=== PATIENT | female | born 1950 | race Caucasian/White ===

== ENCOUNTER 2022-02-19 12:25 | Emergency (ER) | payer MEDICARE, SELFPAY ==
[2022-02-19] VITALS (44 sets, daily range): BP systolic 131–168; BP diastolic 58–105; PULSE 60–79; RESP 13–21; TEMP 36.8–37.1; O2SAT 95–99
--- NOTE | 2022-02-19 12:15 | RT.EKG_ITS ---
APPROVED REPORT Exam: Resting ECG Reason for Exam: chest pain Patient Location: E HR:64 bpm ECG Measurements Heart Rate 64 AXIS AR 185 P [id number] QRSd 86 QRS 39 QT 449 T 60 QTc 463 Conclusion Atrial-paced rhythm Low voltage, precordial leads...precordial leads <1.0mV atrial paced rhythm at 64, normal axis, no STEMI, nondiagnostic EKG
[2022-02-19 12:55] LABS: Abs Immature Grans 0.02 10^3/uL (0.0-0.06); Absolute Basophil Count 0.06 10^3/uL (0.0-0.2); Absolute Lymphocyte Count 1.06 10^3/uL (1.2-3.4); Absolute Monocyte Count 0.73 10^3/uL (0.1-0.8); Absolute Neutrophil Count 4.47 10^3/uL (1.2-6.7); Basophils % 0.8; Eosinophils % 19.1; HCT 37.8 % (36.0-46.0); HGB 11.2 g/dL (11.2-15.7); Immature Grans % 0.3; Lymphocytes % 13.5; MCHC 29.6 % (32.0-36.0); MCV 81 fL (80-95); MPV 10.2 fL (8.0-11.0); Monocytes % 9.3; Platelet Count 260 10^3/uL (130-400); RBC 4.66 10^6/uL (3.93-5.22); RDW 15.6 % (11.7-14.6); RDW-SD 46.2 fL; WBC 7.84 10^3/uL (4.4-10.8)
--- NOTE | 2022-02-19 13:12 | DI.RAD_ITS ---
Exam(s) XR PORTABLE CHEST AP EXAM: XR PORTABLE CHEST AP CLINICAL HISTORY: cough TECHNIQUE: 2D digital imaging was performed of the chest. Two images were obtained. AP views were obtained. COMPARISON: No exams were available for comparison FINDINGS: MEDIASTINUM: Normal. HEART: Normal. PULMONARY VASCULATURE: Normal. LUNGS: Clear. PLEURAL SPACE: No pleural effusion or pneumothorax. BONE:Within normal limits for the patient's age. OTHER FINDINGS:Transvenous cardiac pacing wires are in good position. IMPRESSION: No acute pulmonary findings. DATA REPOSITORY: RADIATION DOSE DELIVERED:
[2022-02-19 13:17] LABS: ALT 47 U/L (14-59); AST 39 U/L (15-37); Albumin 2.7 g/dL (3.4-5.0); Alkaline Phosphatase 162 U/L (46-116); Anion Gap 7.3 mmol/L (3-11); BUN 15 mg/dL (7-18); Bilirubin, Total 0.4 mg/dL (0.2-1.0); CO2 27.7 mmol/L (21.0-32.0); Calcium 8.7 mg/dL (8.5-10.1); Chloride 103 mmol/L (98-107); Estimated GFR 54.97 (mL/min/1.73m2); Glucose 149 mg/dL (74-106); Lipase 78 U/L (73-393); NT-proBNP 159 pg/mL (<300); Sodium 138 mmol/L (136-145); Total Protein 7.7 g/dL (6.4-8.2); Troponin I < 50 ng/L (<or=60)
[2022-02-19] MEDS: Albuterol/Ipratropium 3 ML UPD VIAL UPD (13:29)
--- NOTE | 2022-02-19 13:30 | DI.CT_ITS ---
Exam(s) CT ABDOMEN PELVIS WO EXAM: CT ABDOMEN PELVIS WO CLINICAL HISTORY: LUQ pain. TECHNIQUE: Imaging Protocol: Axial computed tomography images with coronal and sagittal reformatted images were created and reviewed. COMPARISON: No exams were available for comparison FINDINGS: ABDOMEN: Lung Bases: Normal where visualized. Liver: Normal density. No measurable mass. Gallbladder and biliary tract: No radiodense calculus or biliary ductal dilation. Pancreas: Normal density, no abnormal calcifications or inflammatory process. Spleen: Normal. Kidneys: Normal size, contour and axis.Nonobstructing stones are seen in the midpole of the right kid anil. There is a 1.3 cm stone in the dependent portion of the left renal pelvis. It does not appear to be causing obstruction. No masses seen. Adrenal glands: No mass is seen. Lymph nodes: Within normal limits. Abdominal Aorta: Abdominal portion non-dilated. Atherosclerosis. PELVIS: Bladder:Symmetric distention, no gross wall thickening. Bowel: No obstruction or bowel wall thickening. No evidence of acute appendicitis. Peritoneal cavity: No ascites, collection or mesenteric inflammatory response. No free air. Reproductive organs: Status post hysterectomy. Bones: Within normal limits. Soft Tissues: Within normal limits. IMPRESSION: 1. 1.3 cm stone in the left renal pelvis. At this time is not obstructive and no hydronephrosis is p resent. 2. Right nephrolithiasis. 3. Results of this exam have been verbally communicated with provider. RADIATION DOSE DELIVERED: 1,565.71mGy.cm Total DLP DATA REPOSITORY: All CT scans at this facility are submitted to the National Radiology Data Registry (NRDR) Dose Index Registry (DIR) with the [employer] ([employer]). RADIATION OPTIMIZATION: All CT scans at this facility use at least one of these dose optimization te chniques: automated exposure control; mA and/or kV adjustment per patient size (includes targeted exa ms where dose is matched to clinical indication); or iterative reconstruction.
[2022-02-19 13:38] LABS: COVID-19 PCR Negative (Negative); Influenza A PCR Negative (Negative); Influenza B PCR Negative (Negative); RSV PCR Negative (Negative)
[2022-02-19] MEDS: Breeza Beverage 473 ML BTL PO (13:48)
[2022-02-19] MEDS: Barium Sulfate 2% W/V-Berry Smoothie 450 ML BTL PO (13:53)
[2022-02-19 14:09] LABS: Bilirubin Negative (Negative); Blood Negative (Negative); Clarity Clear (Clear); Glucose Negative (Negative); Ketones Negative (Negative); Leukocyte Esterase Negative (Negative); Nitrite Negative (Negative); Specific Gravity >= 1.030 (1.005-1.025); Urobilinogen 0.2 EU/dL (Up TO 0.2)
[2022-02-19 14:20] LABS: Bacteria Negative HPF (Negative); C & S Indicated? No; Casts 0-2 Hyaline LPF (Negative); Crystals Negative HPF (Negative); Epithelial Cells Few HPF (Negative); Mucus Negative (Negative); RBC 0-2 HPF (0-2); WBC Negative HPF (0-5)
--- NOTE | 2022-02-19 14:28 | ED.GENADUL_ITS ---
Discharge Plan Disposition Patient Disposition: HOME Condition: Stable Discharge Details Clinical Impression: Kidney stone Primary Care Provider: Mathew Altman ED Provider: Stacie Shelton Home Meds and New Rx's Prescriptions: New tamsulosin [Flomax] 0.4 mg capsule 0.4 mg PO DAILY Qty: 7 0RF Continued atorvastatin 40 mg tablet 40 mg PO QHS dofetilide [Tikosyn] 250 mcg capsule 250 mcg PO Q12H famotidine 10 mg tablet 10 mg PO DAILY (DME) blood-glucose meter [FreeStyle Flash System] Kit See Rx Instructions .Route Rx Instructions: As directed (DME) blood-glucose meter [FreeStyle Lite Meter] Kit See Rx Instructions .Route Rx Instructions: As directed (DME) FreeStyle Lite Strips Strip See Rx Instructions .Route Rx Instructions: As directed hydralazine 25 mg tablet 25 mg PO TID Rx Instructions: for 2nd dose take 2 tablets as instructed lactobacillis PO DAILY (DME) lancets [Micro Thin Lancets] 33 gauge misc See Rx Instructions .Route Rx Instructions: As directed lidocaine jelly 2 % topical metformin 1,000 mg tablet 1,000 mg PO BID phytonadione (vitamin K1) 100 mcg tablet 500 mcg PO DAILY (DME) Oxygen Tank See Rx Instructions .Route Rx Instructions: 2l/min via nasal cannula silver sulfadiazine [Silvadene] 1 % cream 1 applic topical DAILY PRN Rx Instructions: apply a 1.5 mm thickness albuterol sulfate [Ventolin HFA] 90 mcg/actuation HFA aerosol inhaler 2 puff inhalation Q6H PRN potassium chloride 10 mEq capsule, extended release 10 meq PO TID Qty: 90 3RF prednisone 5 mg tablet 15 mg PO DAILY Qty: 90 6RF Entresto 97-103 mg tablet 1 tab PO BID Qty: 180 3RF No Action potassium chloride 20 mEq tablet extended release 20 meq PO DAILY Label Comments: pt states she takes 20meq 3x/week. carvedilol 25 mg tablet 25 mg PO BID Qty: 180 3RF Rx Instructions: must administer with a meal/food promethazine 12.5 mg tablet 12.5 mg PO Q6H PRN (Reason: nausea and vomiting) Qty: 90 3RF Discharge Instructions Instructions: Kidney Stones (ED) Additional Instructions: Please return immediately to the emergency department if you develop any new or worsening symptoms, if your condition does not improve as expected, or if you become otherwise concerned. It is extremely important that you call soon as possible to make an appointment to be seen in follow-up for this visit by your primary care doctor and urology. If you do not hear from urology tomorrow by noon, please call the number provided. Referrals: Juan Dominguez MD [ [facility] STAFF PHYSICIAN] - Mathew Altman DO [Primary Care Provider] - Discharge Data Discharge Date/Time-TO BE ENTERED AT DEPARTURE: 02/19/22 17:43 Medical Decision Making Candice Albarado is a 71 y/o woman with h/o diabetes, sleep apnea, COPD, chronic venous insufficency, sick sinus syndrome, HTN presenting to the emergency department with chest pain. Pt reports that for the past 2 days she has had pain in her chest (however when asked to point to area of pain Pt motions to her LUQ and not her chest). Pt reports that pain waxes and wanes, no known modifiers. Denies having similar pain in the past. Pt reports on ROS that she also has occasional pain in the area of pacer pocket, has been occurring since chronically since placement, not occurring now. She denies any other pain, fever, cough, vomiting, numbness, weakness. Reports some mild exertional SOB, occurring for a few weeks or longer. Has been eating and drinking as usual. On exam Pt is very well and [id number]. No TTP, edema, erythema over pacer pocket. Moderate focal LUQ TTP, no other abdominal TTP, no peritoneal signs. No TTP of the left anterior or lateral chest wall/ribs. Concern for pancreatitis, colitis, PNA, other. Doubt acute coronary process. Exam/hx at this time not c/w pulmonary embolism, acute aortic pathology, sepsis, appendicitis. Plan for IV placement, screening labs, CXR, CT abd/pelvis. There is currently a national shortage of IV contrast dye. Plan for CT abd/pelv with PO contrast only per [facility] radiology department protocols. 1.3 cm stone in the left renal pelvis on CT scan. On further discussion with patient, she reports that she has been having this pain intermittently over the last few months. Suspect left upper quadrant pain secondary to intermittently obstructing stone. I discussed patient with Dr. Dominguez of urology, who agreed stone likely to be cause of pain, will see patient in outpatient follow-up, requested patient be given Flomax to facilitate cystoscopy.Patient states that she feels the pain is manageable at home, declines pain medication. I had a discussion with Patient regarding return to emergency department precautions, home care, and importance of outpatient follow-up. Pt verbalizes understanding of the plan and is amenable. Patient discharged to home with clear plan for outpatient follow-up. All questions were answered. Disposition decision was made weighing the risks and benefits of hospitalization versus outpatient treatment, the risk for further decompensation, and the patient's wishes. Medical Records Medical records reviewed: Yes I reviewed the patient's medical records. Imaging Data Radiologic Study: Attestation: I personally reviewed and interpreted this imaging study as follows: Radiologist's impression: EXAM:? CT ABDOMEN ? PELVIS WO CLINICAL HISTORY: ? LUQ pain.? TECHNIQUE:? Imaging Protocol: Axial computed tomography images with coronal and sagittal reformatted images were created and reviewed. COMPARISON:? No exams were available for comparison FINDINGS: ABDOMEN: Lung Bases: Normal where visualized. Liver: Normal density. No measurable mass. Gallbladder and biliary tract: No radiodense calculus or biliary ductal dilation. Pancreas: Normal density, no abnormal calcifications or inflammatory process. Spleen: Normal. Kidneys: Normal size, contour and axis.Nonobstructing stones are seen in the midpole of the right kidney.? There is a 1.3 cm stone in the dependent portion of the left renal pelvis.? It does not appear to be causing obstruction.? No masses seen. Adrenal glands: No mass is seen. Lymph nodes: Within normal limits.? Abdominal Aorta: Abdominal portion non-dilated. Atherosclerosis. PELVIS:? Bladder:Symmetric distention, no gross wall thickening. Bowel: No obstruction or bowel wall thickening. No evidence of acute appendicitis.? Peritoneal cavity: No ascites, collection or mesenteric inflammatory response.? No free air.? Reproductive organs: Status post hysterectomy.? Bones: Within normal limits. Soft Tissues: Within normal limits. IMPRESSION: 1. 1.3 cm stone in the left renal pelvis.? At this time is not obstructive and no hydronephrosis is present. 2. Right nephrolithiasis. EXAM:? XR PORTABLE CHEST AP CLINICAL HISTORY:? cough TECHNIQUE:? 2D digital imaging was performed of the chest.? Two images were obtained.? AP views were obtained. COMPARISON:? No exams were available for comparison FINDINGS: MEDIASTINUM: Normal.? HEART: Normal. PULMONARY VASCULATURE: Normal. LUNGS: Clear. ? PLEURAL SPACE: No pleural effusion or pneumothorax. BONE:Within normal limits for the patient's age.? OTHER FINDINGS:Transvenous cardiac pacing wires are in good position. ? IMPRESSION: No acute pulmonary findings. Lab Data Lab results reviewed: Yes I reviewed the patient's lab results. Labs: Laboratory Tests Range/Units 02/19/22 02/19/22 02/19/22 12:40 12:40 12:40 WBC (4.4-10.8) 10^3/uL 7.84 RBC (3.93-5.22) 10^6/uL 4.66 Hgb (11.2-15.7) g/dL 11.2 Hct (36.0-46.0) % 37.8 MCV (80-95) fL 81 MCH (27.0-33.0) pg 24.0 L MCHC (32.0-36.0) % 29.6 L RDW (11.7-14.6) % 15.6 H Plt Count (130-400) 10^3/uL 260 MPV (8.0-11.0) fL 10.2 Immature Gran % 0.3 Neutrophils % 57.0 Lymphocytes % 13.5 Monocytes % 9.3 Eosinophils % 19.1 Basophils % 0.8 Nucleated RBC % (0.0-0.3) % 0.0 Absolute Neutrophils (1.2-6.7) 10^3/uL 4.47 Absolute Lymphocytes (1.2-3.4) 10^3/uL 1.06 L Absolute Monocytes (0.1-0.8) 10^3/uL 0.73 Absolute Eosinophils (0.0-0.7) 10^3/uL 1.50 H Absolute Basophils (0.0-0.2) 10^3/uL 0.06 Sodium (136-145) mmol/L 138 Potassium (3.5-5.1) mmol/L 4.0 Chloride (98-107) mmol/L 103 Carbon Dioxide (21.0-32.0) mmol/L 27.7 Anion Gap (3-11) mmol/L 7.3 BUN (7-18) mg/dL 15 Creatinine (0.55-1.02) mg/dL 1.0 Estimated GFR/1.73 m2 (mL/min/1.73m2) 54.97 Glucose (74-106) mg/dL 149 H Calcium (8.5-10.1) mg/dL 8.7 Total Bilirubin (0.2-1.0) mg/dL 0.4 AST (15-37) U/L 39 H ALT (14-59) U/L 47 Alkaline Phosphatase (46-116) U/L 162 H Troponin I (<or=60) ng/L < 50 NT-Pro-B Natriuret Pep (<300) pg/mL 159 Cancelled Total Protein (6.4-8.2) g/dL 7.7 Albumin (3.4-5.0) g/dL 2.7 L Lipase (73-393) U/L 78 Urine Color (Yellow) Urine Clarity (Clear) Urine pH (5-8) Ur Specific [place] (1.005-1.025) Urine Protein (Negative) mg/dL Urine Ketones (Negative) mg/dL Urine Blood (Negative) Urine Nitrite (Negative) Urine Bilirubin (Negative) Urine Urobilinogen (Up TO 0.2) EU/dL Ur Leukocyte Esterase (Negative) Urine RBC (0-2) HPF Urine WBC (0-5) HPF Ur Epithelial Cells (Negative) HPF Urine Crystals (Negative) HPF Urine Bacteria (Negative) HPF Urine Casts (Negative) LPF Urine Mucus (Negative) Ur Culture Indicated? Urine Glucose (Negative) mg/dL COVID-19 Source SARS-CoV-2 (PCR) (Negative) Influenza Type A (PCR) (Negative) Influenza Type B (PCR) (Negative) RSV (PCR) (Negative) Range/Units 02/19/22 02/19/22 02/19/22 12:47 13:55 16:38 WBC (4.4-10.8) 10^3/uL RBC (3.93-5.22) 10^6/uL Hgb (11.2-15.7) g/dL Hct (36.0-46.0) % MCV (80-95) fL MCH (27.0-33.0) pg MCHC (32.0-36.0) % RDW (11.7-14.6) % Plt Count (130-400) 10^3/uL MPV (8.0-11.0) fL Immature Gran % Neutrophils % Lymphocytes % Monocytes % Eosinophils % Basophils % Nucleated RBC % (0.0-0.3) % Absolute Neutrophils (1.2-6.7) 10^3/uL Absolute Lymphocytes (1.2-3.4) 10^3/uL Absolute Monocytes (0.1-0.8) 10^3/uL Absolute Eosinophils (0.0-0.7) 10^3/uL Absolute Basophils (0.0-0.2) 10^3/uL Sodium (136-145) mmol/L Potassium (3.5-5.1) mmol/L Chloride (98-107) mmol/L Carbon Dioxide (21.0-32.0) mmol/L Anion Gap (3-11) mmol/L BUN (7-18) mg/dL Creatinine (0.55-1.02) mg/dL Estimated GFR/1.73 m2 (mL/min/1.73m2) Glucose (74-106) mg/dL Calcium (8.5-10.1) mg/dL Total Bilirubin (0.2-1.0) mg/dL AST (15-37) U/L ALT (14-59) U/L Alkaline Phosphatase (46-116) U/L Troponin I (<or=60) ng/L < 50 NT-Pro-B Natriuret Pep (<300) pg/mL Total Protein (6.4-8.2) g/dL Albumin (3.4-5.0) g/dL Lipase (73-393) U/L Urine Color (Yellow) Yellow Urine Clarity (Clear) Clear Urine pH (5-8) 6.0 Ur Specific [place] (1.005-1.025) >= 1.030 H Urine Protein (Negative) mg/dL 30 H Urine Ketones (Negative) mg/dL Negative Urine Blood (Negative) Negative Urine Nitrite (Negative) Negative Urine Bilirubin (Negative) Negative Urine Urobilinogen (Up TO 0.2) EU/dL 0.2 Ur Leukocyte Esterase (Negative) Negative Urine RBC (0-2) HPF 0-2 Urine WBC (0-5) HPF Negative Ur Epithelial Cells (Negative) HPF Few Urine Crystals (Negative) HPF Negative Urine Bacteria (Negative) HPF Negative Urine Casts (Negative) LPF 0-2 Hyaline Urine Mucus (Negative) Negative Ur Culture Indicated? No Urine Glucose (Negative) mg/dL Negative COVID-19 Source Not Applicable SARS-CoV-2 (PCR) (Negative) Negative Influenza Type A (PCR) (Negative) Negative Influenza Type B (PCR) (Negative) Negative RSV (PCR) (Negative) Negative ECG Data Attestation: I personally reviewed and interpreted this ECG (s) as follows: Interpretation: EKG shows atrial paced rhythm at 64, normal axis, no STEMI, nondiagnostic EKG HPI General Date/Time Provider Initiated Documentation: 02/19/22 12:38 . Limitations to Documentation: no limitations . Information obtained by: patient, RN notes reviewed and old records reviewed . HPI Narrative: Candice Albarado is a 71 y/o woman with h/o diabetes, sleep apnea, COPD, chronic venous insufficency, sick sinus syndrome, HTN presenting to the emergency department with abdominal pain. Pt reports that for the past 2 days she has had pain in her LUQ. Pt reports that pain waxes and wanes, no known modifiers. Denies having similar pain in the past. Pt reports on ROS that she also has occasional pain in the area of pacer pocket, has been occurring since chronically since placement, not occurring now. She denies any other pain, fever, cough, SOB, vomiting, numbness, weakness. Has been eating and drinking as usual. Related Data Home Medications Medication Instructions Recorded Confirmed Oxygen 02/15/22 03/05/22 albuterol sulfate 90 mcg/actuation 2 puff inhalation Q6H PRN 02/15/22 03/05/22 aerosol inhaler (Ventolin HFA) atorvastatin 40 mg tablet 40 mg PO QHS 02/15/22 03/05/22 blood sugar diagnostic (FreeStyle 02/15/22 03/05/22 Lite Strips) blood-glucose meter (FreeStyle 02/15/22 03/05/22 Flash System kit) blood-glucose meter (FreeStyle 02/15/22 03/05/22 Lite Meter kit) dofetilide 250 mcg capsule 250 mcg PO Q12H 02/15/22 03/05/22 (Tikosyn) famotidine 10 mg tablet 10 mg PO DAILY 02/15/22 03/05/22 hydralazine 25 mg tablet 25 mg PO TID 02/15/22 03/05/22 lactobacillis PO DAILY 02/15/22 lancets 33 gauge (Micro Thin 02/15/22 03/05/22 Lancets) lidocaine jelly 2 % topical 02/15/22 metformin 1,000 mg tablet 1,000 mg PO BID 02/15/22 03/05/22 phytonadione (vitamin K1) 100 mcg 500 mcg PO DAILY 02/15/22 03/05/22 tablet silver sulfadiazine 1 % topical 1 applic topical DAILY PRN 02/15/22 03/05/22 cream (Silvadene) potassium chloride 10 mEq 10 meq PO TID #90 caps 02/16/22 03/05/22 capsule,extended release prednisone 5 mg tablet 15 mg PO DAILY #90 tabs 02/16/22 03/05/22 sacubitril 97 mg-valsartan 103 mg 1 tab PO BID #180 tabs 02/16/22 03/05/22 tablet (Entresto) tamsulosin 0.4 mg capsule (Flomax) 0.4 mg PO DAILY #7 caps 02/19/22 03/05/22 carvedilol 25 mg tablet 25 mg PO BID #180 tabs 02/23/22 03/05/22 potassium chloride 20 mEq 20 meq PO DAILY 02/23/22 03/05/22 tablet,extended release promethazine 12.5 mg tablet 12.5 mg PO Q6H PRN nausea and 02/23/22 03/05/22 vomiting #90 tabs Previous Rx's Medication Instructions Recorded potassium chloride 10 mEq 10 meq PO TID #90 caps 02/16/22 capsule,extended release prednisone 5 mg tablet 15 mg PO DAILY #90 tabs 02/16/22 sacubitril 97 mg-valsartan 103 mg 1 tab PO BID #180 tabs 02/16/22 tablet (Entresto) tamsulosin 0.4 mg capsule (Flomax) 0.4 mg PO DAILY #7 caps 02/19/22 carvedilol 25 mg tablet 25 mg PO BID #180 tabs 02/23/22 promethazine 12.5 mg tablet 12.5 mg PO Q6H PRN nausea and 02/23/22 vomiting #90 tabs Allergies Allergy/AdvReac Type Severity Reaction Status Date / Time iodine Allergy Severe Anaphylaxis Verified 02/23/22 14:05 Penicillins Allergy Severe Anaphylaxis Verified 02/23/22 14:05 Cephalosporins Allergy dermatitis Verified 02/23/22 14:05 fluticasone Allergy unknown Verified 02/23/22 14:05 levofloxacin [From Levaquin] Allergy unknown Verified 02/23/22 14:05 codeine AdvReac Intermediate Nausea/vomi Verified 02/23/22 14:05 ting Inhaled Anesthetics (Halogen AdvReac Intermediate high fever Verified 02/23/22 14:05 Based) sotalol AdvReac Intermediate dysrhythmia Verified 02/23/22 14:05 General Stated Complaint: Chest Pain SEGUN: 2 Review of Systems Narrative: Constitutional: denies fevers Eyes: denies eye pain ENT: denies ear pain, dental pain, sore throat Cardiovascular: denies edema, reports chest pain as per HPI Respiratory: denies SOB, cough GI: denies vomiting, diarrhea, reports abdominal pain : denies flank pain MSK: denies back pain, neck pain, arthralgias, myalgias Skin: denies rash Neuro: denies headaches, numbness, weakness PFSH All Active Problems (Updated 03/05/22 @ 06:33 by Leticia Villarreal MD) Discharge planning issues (Acute) DVT prophylaxis (Acute) Chest pain at rest (Acute) LUQ pain (Acute) Nephrolithiasis (Chronic) Kidney stone (Chronic) Corticosteroid use (Acute) Low back pain (Acute) Anemia (Chronic) Recurrent obstructive pyelonephritis (Acute) Type II diabetes mellitus (Acute) DEVONTE (obstructive sleep apnea) (Chronic) COPD (chronic obstructive pulmonary disease) (Chronic) Chronic venous insufficiency (Acute) SSS (sick sinus syndrome) (Acute) 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) (HFpEF) heart failure with preserved ejection fraction (Acute) HTN (hypertension) (Chronic) Medical History (Updated 03/05/22 @ 06:33 by Leticia Villarreal MD) Allergic reaction to contrast dye Atrial fibrillation Chronic respiratory failure with hypoxia Corticosteroid dependence Gastric ulcer (1986) Obesity, morbid, BMI 40.0-49.9 Oxygen dependent Pulmonary embolism (1979) Syncope (05/26/20) Thrombosis (1984) Urinary incontinence Surgical History (Updated 03/05/22 @ 06:33 by Leticia Villarreal MD) H/O bilateral salpingo-oophorectomy H/O left breast biopsy History of breast biopsy (1974) History of foot surgery (1988) Right History of hysterectomy (~1984) [place], [place] History of lithotripsy (02/2020) History of permanent cardiac pacemaker placement (05/16/21) S/P ablation of atrial fibrillation Social History Smoking/Tobacco Use Status: Former Tobacco Use Quit Date: 10/07/93 Smoking risk assessment performed?: Yes Alcohol Intake: current Alcohol Intake frequency: holidays/special occasions only Drug use: Never Substance use type: does not use Adopted: No Caregiver/Support person: No Foster care: No Household members: spouse Housing: apartment Number of Children: 2 number of grandchildren: 4 Communication Needs: None Education Level: college Details: Associate's Degree Do you need help understanding health information?: Never current occupation: Retired Pets and animals: No Sexually active: No Do you think of yourself as: straight/heterosexual Current gender identity: female What is your relationship status?: How often do you get together with friends or relatives?: three or more times per week Panel score (0-1 are the most socially isolated patients): 2 What type of physical activity do you participate in: none Elis/Jew: Taoism Seatbelt use: always Helmet use: No 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 Do you feel safe at home: Yes Do you feel safe in your relationship?: Yes Exam Narrative Exam Narrative: Constitutional: well and [id number], pleasant, conversing normally HENT: head atraumatic/normocephalic/normal inspection, mucous membranes moist Eyes: conjunctiva normal, sclera normal, pupils 3mm b/l Neck: no stridor, normal ROM, trachea midline Chest: 90 pacer insertion incision well-healed, no overlying skin changes, no edema, no tenderness palpation over pacer pocket, otherwise normal inspection Resp: normal work of breathing, LCTAB Cardio: normal rate, normal rhythm, no murmur appreciated GI: abdomen soft, focal left upper quadrant tenderness to palpation, no rebound, no guarding, non-distended, no CVA tenderness to palpation bilaterally Back: normal inspection, no rash Skin: warm, dry, normal color, no rash Neuro: alert, not altered, grossly non-focal, normal tone Ext: no posterior calf tenderness to palpation Psych: normal mood, normal affect, normal behavior Course Vital Signs Vital signs: Vital Signs Temperature 37.1 C 02/19/22 12:15 Pulse 70 02/19/22 12:15 Respiratory Rate 16 02/19/22 12:15 Blood Pressure 151/63 H 02/19/22 12:15 Pulse Oximetry 98 02/19/22 12:15 Temperature 37.1 C 02/19/22 12:15 Temperature Source Skin 02/19/22 12:15 Pulse 60 02/19/22 14:01 Pulse 61 02/19/22 14:01 Respiratory Rate 15 02/19/22 14:01 Respiratory Effort 02/19/22 13:05 Blood Pressure 154/58 H 02/19/22 14:01 Blood Pressure Mean 84 02/19/22 14:01 Blood Pressure Position Sitting 02/19/22 12:15 Pulse Oximetry 98 02/19/22 14:01 Respiratory End-tidal CO2 33 02/19/22 14:01 Oxygen Delivery Method Nasal Cannula 02/19/22 13:29 Oxygen Flow Rate 2 02/19/22 13:29 End Tidal Co2 40 02/19/22 12:15 Pain Level 7 02/19/22 12:15 Lab/Test Results Lab/Test Results: Laboratory Tests Range/Units 02/19/22 02/19/22 02/19/22 12:40 12:40 12:40 WBC (4.4-10.8) 10^3/uL 7.84 RBC (3.93-5.22) 10^6/uL 4.66 Hgb (11.2-15.7) g/dL 11.2 Hct (36.0-46.0) % 37.8 MCV (80-95) fL 81 MCH (27.0-33.0) pg 24.0 L MCHC (32.0-36.0) % 29.6 L RDW (11.7-14.6) % 15.6 H Plt Count (130-400) 10^3/uL 260 MPV (8.0-11.0) fL 10.2 Immature Gran % 0.3 Neutrophils % 57.0 Lymphocytes % 13.5 Monocytes % 9.3 Eosinophils % 19.1 Basophils % 0.8 Nucleated RBC % (0.0-0.3) % 0.0 Absolute Neutrophils (1.2-6.7) 10^3/uL 4.47 Absolute Lymphocytes (1.2-3.4) 10^3/uL 1.06 L Absolute Monocytes (0.1-0.8) 10^3/uL 0.73 Absolute Eosinophils (0.0-0.7) 10^3/uL 1.50 H Absolute Basophils (0.0-0.2) 10^3/uL 0.06 Sodium (136-145) mmol/L 138 Potassium (3.5-5.1) mmol/L 4.0 Chloride (98-107) mmol/L 103 Carbon Dioxide (21.0-32.0) mmol/L 27.7 Anion Gap (3-11) mmol/L 7.3 BUN (7-18) mg/dL 15 Creatinine (0.55-1.02) mg/dL 1.0 Estimated GFR/1.73 m2 (mL/min/1.73m2) 54.97 Glucose (74-106) mg/dL 149 H Calcium (8.5-10.1) mg/dL 8.7 Total Bilirubin (0.2-1.0) mg/dL 0.4 AST (15-37) U/L 39 H ALT (14-59) U/L 47 Alkaline Phosphatase (46-116) U/L 162 H Troponin I (<or=60) ng/L < 50 NT-Pro-B Natriuret Pep (<300) pg/mL 159 Cancelled Total Protein (6.4-8.2) g/dL 7.7 Albumin (3.4-5.0) g/dL 2.7 L Lipase (73-393) U/L 78 Urine Color (Yellow) Urine Clarity (Clear) Urine pH (5-8) Ur Specific [place] (1.005-1.025) Urine Protein (Negative) mg/dL Urine Ketones (Negative) mg/dL Urine Blood (Negative) Urine Nitrite (Negative) Urine Bilirubin (Negative) Urine Urobilinogen (Up TO 0.2) EU/dL Ur Leukocyte Esterase (Negative) Urine RBC (0-2) HPF Urine WBC (0-5) HPF Ur Epithelial Cells (Negative) HPF Urine Crystals (Negative) HPF Urine Bacteria (Negative) HPF Urine Casts (Negative) LPF Urine Mucus (Negative) Ur Culture Indicated? Urine Glucose (Negative) mg/dL COVID-19 Source SARS-CoV-2 (PCR) (Negative) Influenza Type A (PCR) (Negative) Influenza Type B (PCR) (Negative) RSV (PCR) (Negative) Range/Units 02/19/22 02/19/22 12:47 13:55 WBC (4.4-10.8) 10^3/uL RBC (3.93-5.22) 10^6/uL Hgb (11.2-15.7) g/dL Hct (36.0-46.0) % MCV (80-95) fL MCH (27.0-33.0) pg MCHC (32.0-36.0) % RDW (11.7-14.6) % Plt Count (130-400) 10^3/uL MPV (8.0-11.0) fL Immature Gran % Neutrophils % Lymphocytes % Monocytes % Eosinophils % Basophils % Nucleated RBC % (0.0-0.3) % Absolute Neutrophils (1.2-6.7) 10^3/uL Absolute Lymphocytes (1.2-3.4) 10^3/uL Absolute Monocytes (0.1-0.8) 10^3/uL Absolute Eosinophils (0.0-0.7) 10^3/uL Absolute Basophils (0.0-0.2) 10^3/uL Sodium (136-145) mmol/L Potassium (3.5-5.1) mmol/L Chloride (98-107) mmol/L Carbon Dioxide (21.0-32.0) mmol/L Anion Gap (3-11) mmol/L BUN (7-18) mg/dL Creatinine (0.55-1.02) mg/dL Estimated GFR/1.73 m2 (mL/min/1.73m2) Glucose (74-106) mg/dL Calcium (8.5-10.1) mg/dL Total Bilirubin (0.2-1.0) mg/dL AST (15-37) U/L ALT (14-59) U/L Alkaline Phosphatase (46-116) U/L Troponin I (<or=60) ng/L NT-Pro-B Natriuret Pep (<300) pg/mL Total Protein (6.4-8.2) g/dL Albumin (3.4-5.0) g/dL Lipase (73-393) U/L Urine Color (Yellow) Yellow Urine Clarity (Clear) Clear Urine pH (5-8) 6.0 Ur Specific [place] (1.005-1.025) >= 1.030 H Urine Protein (Negative) mg/dL 30 H Urine Ketones (Negative) mg/dL Negative Urine Blood (Negative) Negative Urine Nitrite (Negative) Negative Urine Bilirubin (Negative) Negative Urine Urobilinogen (Up TO 0.2) EU/dL 0.2 Ur Leukocyte Esterase (Negative) Negative Urine RBC (0-2) HPF 0-2 Urine WBC (0-5) HPF Negative Ur Epithelial Cells (Negative) HPF Few Urine Crystals (Negative) HPF Negative Urine Bacteria (Negative) HPF Negative Urine Casts (Negative) LPF 0-2 Hyaline Urine Mucus (Negative) Negative Ur Culture Indicated? No Urine Glucose (Negative) mg/dL Negative COVID-19 Source Not Applicable SARS-CoV-2 (PCR) (Negative) Negative Influenza Type A (PCR) (Negative) Negative Influenza Type B (PCR) (Negative) Negative RSV (PCR) (Negative) Negative
[2022-02-19] MEDS: Normal Saline 500 ML IV (16:21)
[2022-02-19 17:03] LABS: Troponin I < 50 ng/L (<or=60)
== END 2022-02-19 17:43 | disposition home or self-care (01) ==
PROVIDERS: Emergency Provider Student in an Organized Health Care Education/Training Program; PCP Family Medicine
DX: N20.0 Calculus of kidney (principal); R05.1 Acute cough; R07.9 Chest pain, unspecified; R10.12 Left upper quadrant pain
CPT/HCPCS: 36415; 80053; 83690; 87637; 93005; 94640; 99284; 99285; 71045; 74176; 81003; 81015; 83880; 84484; 85025; 93010; J7620

== ENCOUNTER 2022-03-05 01:23 | Observation (INO) | payer MEDICARE, SELFPAY ==
[2022-03-05] VITALS (31 sets, daily range): BP systolic 123–166; BP diastolic 63–103; PULSE 56–148; RESP 14–23; TEMP 36.1–36.9; O2SAT 90–98
--- NOTE | 2022-03-05 01:15 | RT.EKG_ITS ---
APPROVED REPORT Exam: Resting ECG Reason for Exam: chest pain Patient Location: E HR:135 bpm ECG Measurements Heart Rate 135 AXIS NJ 120 P -85 QRSd 86 QRS 45 QT 346 T 90 QTc 519 Conclusion Sinus tachycardia with irregular rate...V-rate 89-161, variation>10% Borderline ST depression, diffuse leads...ST <-0.07mV, ant/lat/inf Prolonged QT interval...QTc >500mS PHysician: Sinus tachycardia, rate 135, QT 346, QRS 86. No significant ST elevation. Patient does h ave minimal less than a millimeter depression in V3 V4 V5 and V6. Minimal less than a millimeter lyubov vation in V1. No evidence of STEMI.
--- NOTE | 2022-03-05 01:28 | W.ED.GENAD ---
Discharge Plan Disposition Patient Disposition: [facility] INPATIENT Condition: Stable Discharge Details Chief Complaint: Nk/Back Pain Clinical Impression: Nausea & vomiting, Kidney stone Primary Care Provider: Mathew Altman ED Provider: Ned Wallis Home Meds and New Rx's Prescriptions: No Action atorvastatin 40 mg tablet 40 mg PO QHS dofetilide [Tikosyn] 250 mcg capsule 250 mcg PO Q12H famotidine 10 mg tablet 10 mg PO DAILY (DME) blood-glucose meter [FreeStyle Flash System] Kit See Rx Instructions .Route Rx Instructions: As directed (DME) blood-glucose meter [FreeStyle Lite Meter] Kit See Rx Instructions .Route Rx Instructions: As directed (DME) FreeStyle Lite Strips Strip See Rx Instructions .Route Rx Instructions: As directed hydralazine 25 mg tablet 25 mg PO TID Rx Instructions: for 2nd dose take 2 tablets as instructed lactobacillis PO DAILY (DME) lancets [Micro Thin Lancets] 33 gauge misc See Rx Instructions .Route Rx Instructions: As directed lidocaine jelly 2 % topical metformin 1,000 mg tablet 1,000 mg PO BID phytonadione (vitamin K1) 100 mcg tablet 500 mcg PO DAILY (DME) Oxygen Tank See Rx Instructions .Route Rx Instructions: 2l/min via nasal cannula silver sulfadiazine [Silvadene] 1 % cream 1 applic topical DAILY PRN Rx Instructions: apply a 1.5 mm thickness albuterol sulfate [Ventolin HFA] 90 mcg/actuation HFA aerosol inhaler 2 puff inhalation Q6H PRN potassium chloride 10 mEq capsule, extended release 10 meq PO TID Qty: 90 3RF prednisone 5 mg tablet 15 mg PO DAILY Qty: 90 6RF Entresto 97-103 mg tablet 1 tab PO BID Qty: 180 3RF potassium chloride 20 mEq tablet extended release 20 meq PO DAILY Label Comments: pt states she takes 20meq 3x/week. carvedilol 25 mg tablet 25 mg PO BID Qty: 180 3RF Rx Instructions: must administer with a meal/food promethazine 12.5 mg tablet 12.5 mg PO Q6H PRN (Reason: nausea and vomiting) Qty: 90 3RF tamsulosin [Flomax] 0.4 mg capsule 0.4 mg PO DAILY Qty: 7 0RF Medical Decision Making This is a 71 y/o woman with h/o diabetes, sleep apnea, COPD, chronic venous insufficency, sick sinus syndrome, HTN, atrial fibrillation on Tikosyn, pacemaker and previous thrombosis in the distant past in 1984, who presents today for evaluation of chest pain. Patient states that at 9:30 PM she developed. Notable pain in her right back, as well as her left flank and left upper epigastric region. Pain is continued throughout the night. She did contact EMS they brought her to the ER for further assessment. Patient was given nitroglycerin and this did not change her pain. She did have 1 episode of vomiting. She is chronically on 2 L of home oxygen. She denies any additional shortness of breath but does admit to a significant chest heaviness that was present earlier in the day. She denies any fever or chills. She denies exertional component. No other complaints at this time. Physical exam demonstrates reproducible tenderness in the left upper abdominal quadrant, but no tenderness over the ribs. No right-sided tenderness. No tenderness on palpation of the ribs throughout the entirety of the chest. Symptoms appear very similar to her last visit, however this time she does have some right-sided back pain which appears to be new. Cardiac etiology seems less likely with reproducible abdominal component. PE seems less likely. Patient the patient did have a diagnosed 3 mm kidney stone on last CT scan but it was nonobstructing on the left-hand side. This may be the cause of her symptoms, however the episode of vomiting and the reproducible left upper quadrant pain gastritis/gastric ulcer is certainly high on the differential. We will evaluate for these concerning etiologies, monitor closely and reassess. 6:30 AM Laboratory work-up is returned, minimal white count at 12, no bandemia. She remains afebrile. D-dimer has returned normal. Troponin normal, EKG shows no STEMI. There was less than a millimeter of depression in the lateral leads, however I suspect this was rate related. Urinalysis shows no evidence of infection however it does have greater than 50 RBCs. Negative leuk esterase. Negative nitrates. CT scan of the chest shows no acute process, CT scan of the abdomen demonstrates stable findings. GI cocktail was given without significant improvement of symptoms. Although there is no evidence of significant change for hydro for the kidneys, the patient does have RBCs in the urine now which she did not have before. I suspect a component of her pain is from the centimeters size kidney stone on the left. Especially now that we are seeing blood in the urine. There may be a component of GI irritation secondary to her chronic steroid use, but without improvement with GI cocktail feel this might be less likely. Her continued pain control as well as nausea control and I do feel that admission is indicated in an observation status for the patient. I discussed the case with Dr. Villarreal, she agrees with the assessment and plan. She would like us to start a azetreonam here in the emergency department and we will do this. I have extensively reviewed the treatment plan with the patient. I have addressed all patient concerns at this time. I have also discussed the plan with the admitting physician and they agree with the current assessment and plan and have agreed to assume responsibility for the patient. All parties demonstrate verbal understanding and agreement with our assessment and plan at this time. The documentation in this chart was dictated using [employer] dictation software. Please excuse any dictation errors. EKG 1: 24 Sinus tachycardia, rate 135, QT 346, QRS 86. No significant ST elevation. Patient does have minimal less than a millimeter depression in V3 V4 V5 and V6. Minimal less than a millimeter elevation in V1. No evidence of STEMI. FINDINGS: Tubes, catheters and devices: Distal aspect of pacemaker leads are present. Lungs: Unremarkable. No consolidation. No masses. Pleural spaces: Unremarkable. No pneumothorax. No pleural effusion. Heart: Atherosclerotic plaque within the thoracic aorta and branch vessels, including multivessel coronary artery disease. Mitral annular calcification. Lymph nodes: Unremarkable. No enlarged lymph nodes. Vasculature: Unremarkable. No aortic aneurysm. Bones/joints: The remote right-sided rib fractures. Soft tissues: Multiple foci of fat necrosis are noted within the breasts bilaterally. IMPRESSION: 1. No acute findings. 2. Incidental findings as above. FINDINGS: Liver: Normal. No mass. Gallbladder and bile ducts: Normal. No calcified stones. No ductal dilation. Pancreas: Normal. No ductal dilation. Spleen: Normal. No splenomegaly. Adrenal glands: Normal. No mass. Kidneys and ureters: There are calculi noted within the inferior pole of the right kidney and left renal pelvis which are stable when compared to the previous exam. Bilateral perinephric fat stranding is noted. No visualized hydronephrosis or hydroureter. Stomach and bowel: Unremarkable. No obstruction. No mucosal thickening. Appendix: No evidence of appendicitis. Intraperitoneal space: Unremarkable. No free air. No significant fluid collection. Vasculature: Dense atherosclerotic plaque within the abdominal aorta and branch vessels. Lymph nodes: Unremarkable. No enlarged lymph nodes. Urinary bladder: Unremarkable as visualized. Reproductive: Unremarkable as visualized. Bones/joints: Unremarkable. No acute fracture. Soft tissues: Unremarkable. IMPRESSION: 1. No acute findings are evident. 2. Bilateral nonobstructive nephrolithiasis. Thank you for allowing us to participate in the care of your patient. Dictated and Authenticated by: Frederick Palomo MD 03/05/2022 5:04 AM Eastern Time ([place] & [place]) HPI General Date/Time Provider Initiated Documentation: 03/05/22 01:28. HPI Narrative: This is a 71 y/o woman with h/o diabetes, sleep apnea, COPD, chronic venous insufficency, sick sinus syndrome, HTN, previous atrial fibrillation on Tikosyn, and previous thrombosis in the distant past in 1984, who presents today for evaluation of chest pain. Patient states that at 9:30 PM she developed. Notable pain in her right back, as well as her left flank and left upper epigastric region. Pain is continued throughout the night. She did contact EMS they brought her to the ER for further assessment. Patient was given nitroglycerin and this did not change her pain. She did have 1 episode of vomiting. She is chronically on 2 L of home oxygen. She denies any additional shortness of breath but does admit to a significant chest heaviness that was present earlier in the day. She denies any fever or chills. She denies exertional component. No other complaints at this time. Related Data Home Medications Medication Instructions Recorded Confirmed Oxygen 02/15/22 03/05/22 albuterol sulfate 90 mcg/actuation 2 puff inhalation Q6H PRN 02/15/22 03/05/22 aerosol inhaler (Ventolin HFA) atorvastatin 40 mg tablet 40 mg PO QHS 02/15/22 03/05/22 blood sugar diagnostic (FreeStyle 02/15/22 03/05/22 Lite Strips) blood-glucose meter (FreeStyle 02/15/22 03/05/22 Flash System kit) blood-glucose meter (FreeStyle 02/15/22 03/05/22 Lite Meter kit) dofetilide 250 mcg capsule 250 mcg PO Q12H 02/15/22 03/05/22 (Tikosyn) famotidine 10 mg tablet 10 mg PO DAILY 02/15/22 03/05/22 hydralazine 25 mg tablet 25 mg PO TID 02/15/22 03/05/22 lactobacillis PO DAILY 02/15/22 lancets 33 gauge (Micro Thin 02/15/22 03/05/22 Lancets) lidocaine jelly 2 % topical 02/15/22 metformin 1,000 mg tablet 1,000 mg PO BID 02/15/22 03/05/22 phytonadione (vitamin K1) 100 mcg 500 mcg PO DAILY 02/15/22 03/05/22 tablet silver sulfadiazine 1 % topical 1 applic topical DAILY PRN 02/15/22 03/05/22 cream (Silvadene) potassium chloride 10 mEq 10 meq PO TID #90 caps 02/16/22 03/05/22 capsule,extended release prednisone 5 mg tablet 15 mg PO DAILY #90 tabs 02/16/22 03/05/22 sacubitril 97 mg-valsartan 103 mg 1 tab PO BID #180 tabs 02/16/22 03/05/22 tablet (Entresto) tamsulosin 0.4 mg capsule (Flomax) 0.4 mg PO DAILY #7 caps 02/19/22 03/05/22 carvedilol 25 mg tablet 25 mg PO BID #180 tabs 02/23/22 03/05/22 potassium chloride 20 mEq 20 meq PO DAILY 02/23/22 03/05/22 tablet,extended release promethazine 12.5 mg tablet 12.5 mg PO Q6H PRN nausea and 02/23/22 03/05/22 vomiting #90 tabs Previous Rx's Medication Instructions Recorded potassium chloride 10 mEq 10 meq PO TID #90 caps 02/16/22 capsule,extended release prednisone 5 mg tablet 15 mg PO DAILY #90 tabs 02/16/22 sacubitril 97 mg-valsartan 103 mg 1 tab PO BID #180 tabs 02/16/22 tablet (Entresto) tamsulosin 0.4 mg capsule (Flomax) 0.4 mg PO DAILY #7 caps 02/19/22 carvedilol 25 mg tablet 25 mg PO BID #180 tabs 02/23/22 promethazine 12.5 mg tablet 12.5 mg PO Q6H PRN nausea and 02/23/22 vomiting #90 tabs Allergies Allergy/AdvReac Type Severity Reaction Status Date / Time iodine Allergy Severe Anaphylaxis Verified 02/23/22 14:05 Penicillins Allergy Severe Anaphylaxis Verified 02/23/22 14:05 Cephalosporins Allergy dermatitis Verified 02/23/22 14:05 fluticasone Allergy unknown Verified 02/23/22 14:05 levofloxacin [From Levaquin] Allergy unknown Verified 02/23/22 14:05 codeine AdvReac Intermediate Nausea/vomi Verified 02/23/22 14:05 ting Inhaled Anesthetics (Halogen AdvReac Intermediate high fever Verified 02/23/22 14:05 Based) sotalol AdvReac Intermediate dysrhythmia Verified 02/23/22 14:05 General Stated Complaint: Nk/Back Pain SEGUN: 3 Review of Systems All systems reviewed & are unremarkable except as noted in HPI and below PFSH All Active Problems (Updated 03/05/22 @ 06:33 by Leticia Villarreal MD) Discharge planning issues (Acute) DVT prophylaxis (Acute) Chest pain at rest (Acute) LUQ pain (Acute) Nephrolithiasis (Chronic) Kidney stone (Chronic) Corticosteroid use (Acute) Low back pain (Acute) Anemia (Chronic) Recurrent obstructive pyelonephritis (Acute) Type II diabetes mellitus (Acute) DEVONTE (obstructive sleep apnea) (Chronic) COPD (chronic obstructive pulmonary disease) (Chronic) Chronic venous insufficiency (Acute) SSS (sick sinus syndrome) (Acute) 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) (HFpEF) heart failure with preserved ejection fraction (Acute) HTN (hypertension) (Chronic) Medical History (Updated 03/05/22 @ 06:33 by Leticia Villarreal MD) Allergic reaction to contrast dye Atrial fibrillation Chronic respiratory failure with hypoxia Corticosteroid dependence Gastric ulcer (1986) Obesity, morbid, BMI 40.0-49.9 Oxygen dependent Pulmonary embolism (1979) Syncope (05/26/20) Thrombosis (1984) Urinary incontinence Surgical History (Updated 03/05/22 @ 06:33 by Leticia Villarreal MD) H/O bilateral salpingo-oophorectomy H/O left breast biopsy History of breast biopsy (1974) History of foot surgery (1988) Right History of hysterectomy (~1984) [place], [place] History of lithotripsy (02/2020) History of permanent cardiac pacemaker placement (05/16/21) S/P ablation of atrial fibrillation Social History Smoking/Tobacco Use Status: Former Tobacco Use Quit Date: 10/07/93 Smoking risk assessment performed?: Yes Alcohol Intake: current Alcohol Intake frequency: holidays/special occasions only Drug use: Never Substance use type: does not use Adopted: No Caregiver/Support person: No Foster care: No Household members: spouse Housing: apartment Number of Children: 2 number of grandchildren: 4 Communication Needs: None Education Level: college Details: Associate's Degree Do you need help understanding health information?: Never current occupation: Retired Pets and animals: No Sexually active: No Do you think of yourself as: straight/heterosexual Current gender identity: female What is your relationship status?: How often do you get together with friends or relatives?: three or more times per week Panel score (0-1 are the most socially isolated patients): 2 What type of physical activity do you participate in: none Elis/Restorationism: Sabianism Seatbelt use: always Helmet use: No Drive intox or ride w/intox cpr ambulance driver: No Do you feel safe at home: Yes Do you feel safe in your relationship?: Yes Exam Narrative Exam Narrative: 1.Const: Well-nourished, Well-developed, appearing stated age 2.Eyes: PERRL, no conjunctival injection, and symmetrical lids. 3.ENT: Atraumatic external nose and ears. Mildly dry MM. Neck: Symmetric, trachea midline, No thyromegaly. 4.CVS: +S1/S2, No murmurs or gallops. Peripheral pulses 2+ and equal in all extremities. Brisk capillary refill in all extremities. 5.RESP: Unlabored respiratory effort. Clear to auscultation bilaterally. No wheezes rales or rhonchi 6.GI: Soft, nondistended. Reproducible tenderness in the left upper abdominal quadrant and left flank. No tenderness over the left ribs or chest. No tenderness over the right chest wall. No tenderness at McBurney's point. Negative Taylor sign. 7.MSK: Normocephalic/Atraumatic, Extremities w/o deformity or ttp No cyanosis or clubbing, Normal movement of all extremities 8.Skin: Warm, Dry. No rashes or lesions. 9.Neuro: [employer] II-XII grossly intact. Sensation grossly intact, no focal neurologic deficits. 10.Psych: (AAO) x3. Appropriate mood and affect Course Vital Signs Vital signs: Vital Signs Temperature 36.5 C 03/05/22 01:12 Pulse 127 H 03/05/22 01:12 Respiratory Rate 20 03/05/22 01:12 Blood Pressure 137/95 H 03/05/22 01:12 Pulse Oximetry 95 03/05/22 01:12 Temperature 36.5 C 03/05/22 01:12 Temperature Source Oral 03/05/22 01:12 Pulse 127 H 03/05/22 01:12 Respiratory Rate 20 03/05/22 01:12 Blood Pressure 137/95 H 03/05/22 01:12 Pulse Oximetry 95 03/05/22 01:12 Pain Level 10 03/05/22 01:12
[2022-03-05 01:50] LABS: Abs Immature Grans 0.05 10^3/uL (0.0-0.06); Absolute Basophil Count 0.06 10^3/uL (0.0-0.2); Absolute Eosinophil Count 0.35 10^3/uL (0.0-0.7); Absolute Lymphocyte Count 2.31 10^3/uL (1.2-3.4); Absolute Monocyte Count 1.14 10^3/uL (0.1-0.8); Absolute Neutrophil Count 8.65 10^3/uL (1.2-6.7); Basophils % 0.5; Eosinophils % 2.8; HCT 38.3 % (36.0-46.0); HGB 11.5 g/dL (11.2-15.7); Immature Grans % 0.4; Lymphocytes % 18.4; MCH 24.2 pg (27.0-33.0); MCV 81 fL (80-95); MPV 10.3 fL (8.0-11.0); Monocytes % 9.1; Neutrophils % 68.8; Platelet Count 326 10^3/uL (130-400); RBC 4.76 10^6/uL (3.93-5.22); RDW 15.9 % (11.7-14.6); RDW-SD 46.3 fL; WBC 12.57 10^3/uL (4.4-10.8)
[2022-03-05] MEDS: Ondansetron 4 MG/2 ML VIAL IVP (01:53)
[2022-03-05] MEDS: Normal Saline 500 ML IV (01:53)
[2022-03-05] MEDS: MORPHine 4 MG/ML SYR IVP (01:57)
[2022-03-05 02:06] LABS: ALT 28 U/L (14-59); AST 25 U/L (15-37); Alkaline Phosphatase 133 U/L (46-116); Anion Gap 12.8 mmol/L (3-11); BUN 21 mg/dL (7-18); Bilirubin, Total 0.3 mg/dL (0.2-1.0); CO2 23.2 mmol/L (21.0-32.0); CREATININE 1.2 mg/dL (0.55-1.02); Calcium 9.1 mg/dL (8.5-10.1); Chloride 108 mmol/L (98-107); Estimated GFR 44.54 (mL/min/1.73m2); Glucose 162 mg/dL (74-106); Potassium 4.3 mmol/L (3.5-5.1); Sodium 144 mmol/L (136-145); Total Protein 7.7 g/dL (6.4-8.2); Troponin I < 50 ng/L (<or=60)
--- NOTE | 2022-03-05 03:15 | DI.CT_ITS ---
Exam(s) CT CHEST/ABD/PEL WO EXAM: CT CHEST/ABD/PEL WO CLINICAL HISTORY: right chest pain, left flank pain, vomiting TECHNIQUE: Imaging Protocol: Axial computed tomography images with coronal and sagittal reformatted images were created and reviewed COMPARISON: CT CT ABDOMEN PELVIS WO from 02/19/2022 FINDINGS: CHEST: Tracheobronchial tree: Patent where visualized. Pulmonary parenchyma: No consolidation or dominant measurable mass. No architectural distortion. Mediastinum and Nel: No dominant adenopathy or fluid collection. The esophagus is unremarkable. Thyroid gland: Unremarkable. Pleura: No effusion or pneumothorax. Heart: The heart is not dilated. Coronary artery calcifications. Calcification is also present of th e mitral valve. No pericardial effusion. Transvenous pacemaker is in place. Aorta: Thoracic aorta non-dilated. Atherosclerosis. Lymph nodes: Within normal limits. Bones:Within normal limits for the patient's age. There are old rib fractures. Soft tissues: Unremarkable. ABDOMEN: Liver: Normal density. No measurable mass. Gallbladder and Biliary Tract: No radiodense calculus or dilation. Pancreas: Normal density. No inflammatory process. There are parenchymal calcifications in the panc reas which may reflect chronic pancreatitis. Spleen: Normal. Adrenals: No masses seen. Kidneys: Normal size, contour and axis. There is bilateral nephrolithiasis. No evidence of right hyd ronephrosis. There is a 1.2 cm stone at the left UPJ without dilatation of the collecting system. N o masses seen. Abdominal Aorta: Abdominal portion non-dilated. Atherosclerosis is present. Bowel: No obstruction or bowel wall thickening. No evidence of appendicitis. Peritoneal Cavity: No ascites, collection or mesenteric inflammatory response. No free air. Lymph Nodes: Within normal limits. Bones: Within normal limits for the patient's age. Soft Tissues: There are small fat containing bilateral inguinal hernias. PELVIS: Bladder: Symmetric distention, no gross wall thickening. Reproductive Organs: Status post hysterectomy. Lymph Nodes: Within normal limits. Bones: Within normal limits for the patient's age. IMPRESSION: 1. No acute pulmonary process. 2. Bilateral nephrolithiasis. No dilatation of the renal collecting system. RADIATION DOSE DELIVERED: 2,221.11mGy.cm Total DLP 2,221.11mGy.cm Total DLP DATA REPOSITORY: All CT scans at this facility are submitted to the National Radiology Data Registry (NRDR) Dose Index Registry (DIR) with the [employer] (A[employer]). RADIATION OPTIMIZATION: All CT scans at this facility use at least one of these dose optimization te chniques: automated exposure control; mA and/or kV adjustment per patient size (includes targeted exa ms where dose is matched to clinical indication); or iterative reconstruction.
[2022-03-05 03:27] LABS: D-Dimer 435 ng/mlFEU (<500)
[2022-03-05 03:39] LABS: Bilirubin Small (Negative); Blood Moderate (Negative); Clarity Sl Cloudy (Clear); Glucose Negative (Negative); Ketones 15 mg/dL (Negative); Leukocyte Esterase Negative (Negative); Nitrite Negative (Negative); Specific Gravity >= 1.030 (1.005-1.025); Urobilinogen 0.2 EU/dL (Up TO 0.2); pH 5.5 (5-8)
[2022-03-05 03:41] LABS: Bacteria Few HPF (Negative); C & S Indicated? No; Casts Negative LPF (Negative); Crystals Negative HPF (Negative); Epithelial Cells Moderate HPF (Negative); Mucus Negative (Negative); RBC >50 HPF (0-2)
[2022-03-05] MEDS: Metoclopramide 10 MG/2 ML VIAL IVP (04:26)
[2022-03-05 04:41] LABS: Source Nasal/Nares
--- NOTE | 2022-03-05 05:00 | RT.EKG_ITS ---
APPROVED REPORT Exam: Resting ECG Reason for Exam: chest pain Patient Location: E HR:71 bpm ECG Measurements Heart Rate 71 AXIS [place] 169 P 148 QRSd 91 QRS 145 QT 448 T 145 QTc 487 Conclusion Atrial-paced complexes...other complexes also detected Right axis deviation...QRS axis ( 91,269) Abnrm T, consider ischemia, anterolateral lds...T <-0.20mV, I aVL V2-V6 Physician: no stemi. no significnt st elevation or depressions
--- NOTE | 2022-03-05 05:06 | DI.VRAD_ITS ---
PROCEDURE INFORMATION: Exam: CT Chest Without Contrast; Diagnostic Exam date and time: 03/05/2022 4:18 AM Age: 71 years old Clinical indication: Other: L flank; Right-sided; Prior surgery; Surgery date: 6+ months; Surgery type: Pacemaker and hysterectomy; Patient HX: Right chest pain, left flank pain, vomiting TECHNIQUE: Imaging protocol: Diagnostic computed tomography of the chest without contrast. Radiation optimization: All CT scans at this facility use at least one of these dose optimization techniques: automated exposure control; mA and/or kV adjustment per patient size (includes targeted exams where dose is matched to clinical indication); or iterative reconstruction. COMPARISON: CR XR PORTABLE CHEST AP 02/19/2022 12:54 PM FINDINGS: Tubes, catheters and devices: Distal aspect of pacemaker leads are present. Lungs: Unremarkable. No consolidation. No masses. Pleural spaces: Unremarkable. No pneumothorax. No pleural effusion. Heart: Atherosclerotic plaque within the thoracic aorta and branch vessels, including multivessel coronary artery disease. Mitral annular calcification. Lymph nodes: Unremarkable. No enlarged lymph nodes. Vasculature: Unremarkable. No aortic aneurysm. Bones/joints: The remote right-sided rib fractures. Soft tissues: Multiple foci of fat necrosis are noted within the breasts bilaterally. IMPRESSION: 1. No acute findings. 2. Incidental findings as above. PROCEDURE INFORMATION: Exam: CT Abdomen And Pelvis Without Contrast Exam date and time: 03/05/2022 4:18 AM Age: 71 years old Clinical indication: Other: L flank; Right-sided; Prior surgery; Surgery date: 6+ months; Surgery type: Pacemaker and hysterectomy; Patient HX: Right chest pain, left flank pain, vomiting TECHNIQUE: Imaging protocol: Computed tomography of the abdomen and pelvis without contrast. Radiation optimization: All CT scans at this facility use at least one of these dose optimization techniques: automated exposure control; mA and/or kV adjustment per patient size (includes targeted exams where dose is matched to clinical indication); or iterative reconstruction. COMPARISON: CT ABDOMEN PELVIS WO 02/19/2022 3:42 PM FINDINGS: Liver: Normal. No mass. Gallbladder and bile ducts: Normal. No calcified stones. No ductal dilation. Pancreas: Normal. No ductal dilation. Spleen: Normal. No splenomegaly. Adrenal glands: Normal. No mass. Kidneys and ureters: There are calculi noted within the inferior pole of the right kidney and left renal pelvis which are stable when compared to the previous exam. Bilateral perinephric fat stranding is noted. No visualized hydronephrosis or hydroureter. Stomach and bowel: Unremarkable. No obstruction. No mucosal thickening. Appendix: No evidence of appendicitis. Intraperitoneal space: Unremarkable. No free air. No significant fluid collection. Vasculature: Dense atherosclerotic plaque within the abdominal aorta and branch vessels. Lymph nodes: Unremarkable. No enlarged lymph nodes. Urinary bladder: Unremarkable as visualized. Reproductive: Unremarkable as visualized. Bones/joints: Unremarkable. No acute fracture. Soft tissues: Unremarkable. IMPRESSION: 1. No acute findings are evident. 2. Bilateral nonobstructive nephrolithiasis. Dictated and Authenticated by: Frederick Palomo MD. Ordering:PATT Marino MD
[2022-03-05 05:33] LABS: COVID-19 PCR Negative (Negative)
--- NOTE | 2022-03-05 06:13 | HPE_ITS ---
Date of service: 03/05/22 Time of Service: 05:30 Assessment and Plan Assessment and plan (1) Chest pain at rest: Status: Acute Assessment and plan: Likely noncardiac. The patient does have evidence of CAD on CT, but her chest pain had been going on for the entirety of the day and her troponin on presentation to the ED was negative. I think, given h/o chronic steroid use, there is a strong possibility of esophagitis/gastritis/GERD. Will try scheduled PPI and carafate. Monitor on tele. Continue to trend troponins. Obtain echo in am. (2) LUQ pain: Status: Acute Assessment and plan: This could be due to nephrolithiasis and/or pyelonephritis or GI causes (the patient has h/o GI blood loss, a listed history of an ulcer, which the patient does not actually endorse, and she is on chronic steroids). Treat for pyelonephritis. Schedule PPI and carafate. (3) Atrial fibrillation: Assessment and plan: Patient is in paced rhythm on EKG here. Her Pacemaker could be interrogated to see what the rhythm last night was. Monitor on tele. Continue dofetilide. Not on anticoagulation due to reported history of GI bleeding - obtain records from [facility] [place] [facility]. (4) Nephrolithiasis: Status: Chronic Assessment and plan: Evidence of perinephric stranding on CT - possible pyelonephritis, per my clinical interpretation, given leucocytosis. The patient is immunosuppresed with steroids and may not be able to mount a leucocyte esterase in her urine. Would treat empirically. Given allergies, I think that the aztreonam is the best choice. Obtain blood cultures and urine C&S. Obtain urology consult ( I do not think they are here today due to ). (5) Pyelonephritis: Status: Suspected Assessment and plan: As above (6) DVT prophylaxis: Status: Acute Assessment and plan: SCDs while we are investigating the details of her GI bleed in the past. (7) Discharge planning issues: Status: Acute Assessment and plan: Full code The patient is a transplant from [place] and has established care with Dr Altman who appears to already have made referrals to general surgery for calciphylaxis and to cardiology. I will send a referral to pulmonology. Urology referral to [facility] has already been submitted, per patient. History of Present Illness History of Present Illness Chief Complaint: chest pain, LUQ pain, palpitations, I thought I was having a heart attack Narrative: Ms Albarado is a 71 year old female with PMHx of CHF (?EF), as well as h/o A fib/SSS, s/p pacemaker, no longer on anticoagulation due to h/o GI bleeding resulting in severe anemia in the past (treated at [facility] in [place], [place]), on dofetilide therapy, O2- and Steroid-dependent COPD, on 2L of O2 by [place], DEVONTE on CPAP at night, and nephrolithiasis, who was brought to [facility] ED by EMS for complaints of L sided chest pain radiating to back, B shoulders and arms, as well as L neck, and LUQ pain. The patient states that she was worried she was having a heart attack and could not take the pain. She also reported to me that she had a 3 hr episode of palpitations (Afib) which started at 9:30 pm while watching a movie with her grandson, which was making the chest pain worse. This resolved by the time the patient got to the ED. The patient received nitroglycerin by the EMS, which made her vomit. Otherwise, the patient does report nausea all day. Denies change in bowel habits or pain other than the LUQ pain that has been there for 1 month - she thinks it is due to a kidney stone. She has been referred to [facility] urology but had not yet been contacted by [facility] to actually schedule an appointment. The patient also thought she might be having a stroke because she had a headache today. Her ER workup revealed a leucocytosis of 12.57 (WBC count was 7.84 when seen in our ED on 02/19/22). CT chest/abdomen/pelvis showed no acute findings; she does have bilateral nonobstructing kidney stones. Bilateral perinephric stranding was noted without hydronephrosis or hydroureter. Review of Systems All systems reviewed & are unremarkable except as noted in HPI and below PFSH All Active Problems (Updated 03/05/22 @ 06:33 by Leticia Villarreal MD) Discharge planning issues (Acute) DVT prophylaxis (Acute) Chest pain at rest (Acute) LUQ pain (Acute) Nephrolithiasis (Chronic) Kidney stone (Chronic) Corticosteroid use (Acute) Low back pain (Acute) Anemia (Chronic) Recurrent obstructive pyelonephritis (Acute) Type II diabetes mellitus (Acute) DEVONTE (obstructive sleep apnea) (Chronic) COPD (chronic obstructive pulmonary disease) (Chronic) Chronic venous insufficiency (Acute) SSS (sick sinus syndrome) (Acute) 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) (HFpEF) heart failure with preserved ejection fraction (Acute) HTN (hypertension) (Chronic) Medical History (Updated 03/05/22 @ 06:33 by Leticia Villarreal MD) Allergic reaction to contrast dye Atrial fibrillation Chronic respiratory failure with hypoxia Corticosteroid dependence Gastric ulcer (1986) Obesity, morbid, BMI 40.0-49.9 Oxygen dependent Pulmonary embolism (1979) Syncope (05/26/20) Thrombosis (1984) Urinary incontinence Surgical History (Updated 03/05/22 @ 06:33 by Leticia Villarreal MD) H/O bilateral salpingo-oophorectomy H/O left breast biopsy History of breast biopsy (1974) History of foot surgery (1988) Right History of hysterectomy (~1984) [place], [place] History of lithotripsy (02/2020) History of permanent cardiac pacemaker placement (05/16/21) S/P ablation of atrial fibrillation Social History Smoking/Tobacco Use Status: Former Tobacco Use Quit Date: 10/07/93 Smoking risk assessment performed?: Yes Alcohol Intake: current Alcohol Intake frequency: holidays/special occasions only Drug use: Never Substance use type: does not use Adopted: No Caregiver/Support person: No Foster care: No Household members: spouse Housing: apartment Number of Children: 2 number of grandchildren: 4 Communication Needs: None Education Level: college Details: Associate's Degree Do you need help understanding health information?: Never current occupation: Retired Pets and animals: No Sexually active: No Do you think of yourself as: straight/heterosexual Current gender identity: female What is your relationship status?: How often do you get together with friends or relatives?: three or more times p er week Panel score (0-1 are the most socially isolated patients): 2 What type of physical activity do you participate in: none Elis/Yazdanism: Buddhism Seatbelt use: always Helmet use: No Drive intox or ride w/intox dumpcart driver: No Do you feel safe at home: Yes Do you feel safe in your relationship?: Yes Meds Allergies and Home Medications Allergies Allergy/AdvReac Type Severity Reaction Status Date / Time iodine Allergy Severe Anaphylaxis Verified 02/23/22 14:05 Penicillins Allergy Severe Anaphylaxis Verified 02/23/22 14:05 Cephalosporins Allergy dermatitis Verified 02/23/22 14:05 fluticasone Allergy unknown Verified 02/23/22 14:05 levofloxacin [From Levaquin] Allergy unknown Verified 02/23/22 14:05 codeine AdvReac Intermediate Nausea/vomi Verified 02/23/22 14:05 ting Inhaled Anesthetics (Halogen AdvReac Intermediate high fever Verified 02/23/22 14:05 Based) sotalol AdvReac Intermediate dysrhythmia Verified 02/23/22 14:05 Home Medications Medication Instructions Recorded Confirmed Type Oxygen 02/15/22 03/05/22 History albuterol sulfate 90 mcg/actuation 2 puff inhalation Q6H PRN 02/15/22 03/05/22 History aerosol inhaler (Ventolin HFA) atorvastatin 40 mg tablet 40 mg PO QHS 02/15/22 03/05/22 History blood sugar diagnostic (FreeStyle 02/15/22 03/05/22 History Lite Strips) blood-glucose meter (FreeStyle 02/15/22 03/05/22 History Flash System kit) blood-glucose meter (FreeStyle 02/15/22 03/05/22 History Lite Meter kit) dofetilide 250 mcg capsule 250 mcg PO Q12H 02/15/22 03/05/22 History (Tikosyn) famotidine 10 mg tablet 10 mg PO DAILY 02/15/22 03/05/22 History hydralazine 25 mg tablet 25 mg PO TID 02/15/22 03/05/22 History lactobacillis PO DAILY 02/15/22 History lancets 33 gauge (Micro Thin 02/15/22 03/05/22 History Lancets) lidocaine jelly 2 % topical 02/15/22 History metformin 1,000 mg tablet 1,000 mg PO BID 02/15/22 03/05/22 History phytonadione (vitamin K1) 100 mcg 500 mcg PO DAILY 02/15/22 03/05/22 History tablet silver sulfadiazine 1 % topical 1 applic topical DAILY PRN 02/15/22 03/05/22 History cream (Silvadene) potassium chloride 10 mEq 10 meq PO TID #90 caps 02/16/22 03/05/22 Rx capsule,extended release prednisone 5 mg tablet 15 mg PO DAILY #90 tabs 02/16/22 03/05/22 Rx sacubitril 97 mg-valsartan 103 mg 1 tab PO BID #180 tabs 02/16/22 03/05/22 Rx tablet (Entresto) tamsulosin 0.4 mg capsule (Flomax) 0.4 mg PO DAILY #7 caps 02/19/22 03/05/22 Rx carvedilol 25 mg tablet 25 mg PO BID #180 tabs 02/23/22 03/05/22 Rx potassium chloride 20 mEq 20 meq PO DAILY 02/23/22 03/05/22 History tablet,extended release promethazine 12.5 mg tablet 12.5 mg PO Q6H PRN nausea and 02/23/22 03/05/22 Rx vomiting #90 tabs Exam Narrative Exam Narrative: General: Pleasant obese female who does not look ill, looks tired, A&Ox3, on 2L of O2 by [place] Neurological: A&Ox3, no focal deficits Psychiatric: Mildly anxious; appropriate speech pattern/content Skin: Visible skin intact, including skin on B feet HEENT: Atraumatic, normocephalic, EOMI, MMM, clear oropharynx, no submandibular or cervical lymphadenopathy, no goiter or JVD Cardiovascular: RRR, no m/r/g Lungs: A very faint wheeze on exhilation in L lung Gastrointestinal: soft, tender in L flank/LUQ Genitourinary: deferred Extremities: no edema BLEs, 1+ pedal pulses B, no c/c Results Imaging Additional studies: EKG: Atrially paced rhythm, HR 70, no acute ischemia CT chest: 1. No acute findings. CT abdomen/pelvis: 1. No acute findings are evident. 2. Bilateral nonobstructive nephrolithiasis. Labs Result diagrams: 03/05/22 01:45 03/05/22 01:45 Labs: Laboratory Results - last 24 hr 03/05/22 03/05/22 03/05/22 01:45 01:45 02:50 WBC 12.57 H RBC 4.76 Hgb 11.5 Hct 38.3 MCV 81 MCH 24.2 L MCHC 30.0 L RDW 15.9 H Plt Count 326 MPV 10.3 Immature Gran % 0.4 Neutrophils % 68.8 Lymphocytes % 18.4 Monocytes % 9.1 Eosinophils % 2.8 Basophils % 0.5 Nucleated RBC % 0.0 Absolute Neutrophils 8.65 H Absolute Lymphocytes 2.31 Absolute Monocytes 1.14 H Absolute Eosinophils 0.35 Absolute Basophils 0.06 D-Dimer 435 Sodium 144 Potassium 4.3 Chloride 108 H Carbon Dioxide 23.2 Anion Gap 12.8 H BUN 21 H Creatinine 1.2 H Estimated GFR/1.73 m2 44.54 Glucose 162 H Calcium 9.1 Total Bilirubin 0.3 AST 25 ALT 28 Alkaline Phosphatase 133 H Troponin I < 50 Total Protein 7.7 Albumin 3.0 L Urine Color Urine Clarity Urine pH Ur Specific Alston Urine Protein Urine Ketones Urine Blood Urine Nitrite Urine Bilirubin Urine Urobilinogen Ur Leukocyte Esterase Urine RBC Urine WBC Ur Epithelial Cells Urine Crystals Urine Bacteria Urine Casts Urine Mucus Ur Culture Indicated? Urine Glucose COVID-19 Source SARS-CoV-2 (PCR) 03/05/22 03/05/22 03:25 04:30 WBC RBC Hgb Hct MCV MCH MCHC RDW Plt Count MPV Immature Gran % Neutrophils % Lymphocytes % Monocytes % Eosinophils % Basophils % Nucleated RBC % Absolute Neutrophils Absolute Lymphocytes Absolute Monocytes Absolute Eosinophils Absolute Basophils D-Dimer Sodium Potassium Chloride Carbon Dioxide Anion Gap BUN Creatinine Estimated GFR/1.73 m2 Glucose Calcium Total Bilirubin AST ALT Alkaline Phosphatase Troponin I Total Protein Albumin Urine Color Yellow Urine Clarity Sl Cloudy Urine pH 5.5 Ur Specific Alston >= 1.030 H Urine Protein >=300 H Urine Ketones 15 H Urine Blood Moderate H Urine Nitrite Negative Urine Bilirubin Small H Urine Urobilinogen 0.2 Ur Leukocyte Esterase Negative Urine RBC >50 H Urine WBC 3-5 Ur Epithelial Cells Moderate Urine Crystals Negative Urine Bacteria Few Urine Casts Negative Urine Mucus Negative Ur Culture Indicated? No Urine Glucose Negative COVID-19 Source Nasal/Nares SARS-CoV-2 (PCR) Negative Last Vital Signs Temp 36.5 C 03/05/22 01:12 Pulse 79 03/05/22 04:02 Resp 14 03/05/22 04:02 BP 123/63 03/05/22 04:02 Pulse Ox 95 03/05/22 04:02
[2022-03-05] MEDS: AZTREONAM 2,000 MG in Normal Saline 100 ML 200 MG IVPB (06:46)
[2022-03-05 07:25] LABS: Troponin I < 50 ng/L (<or=60)
[2022-03-05] MEDS: Dofetilide 250 MCG CAP PO ×2 (09:24→19:19)
[2022-03-05] MEDS: Sacubitril/Valsartan 24 mg/26 mg TAB 4 EACH PO ×2 (09:25→19:18)
[2022-03-05] MEDS: Potassium Chloride 20 MEQ TABCR PO (09:25)
[2022-03-05] MEDS: Pantoprazole 40 MG TABCR PO ×2 (09:25→19:19)
[2022-03-05] MEDS: predniSONE 5 MG TAB 15 MG PO (09:25)
[2022-03-05] MEDS: hydrALAZINE 25 MG TAB PO ×3 (09:26→19:19)
[2022-03-05] MEDS: Sucralfate 1 GM TAB PO ×4 (09:26→22:05)
[2022-03-05] MEDS: Carvedilol 25 MG TAB PO ×2 (09:26→19:19)
--- NOTE | 2022-03-05 11:25 | PT.INIE ---
PT Notes Visit Reasons: Chest Pain,Palpitations,Nephrolithiasis Inpatient Physical Therapy Evaluation Date: 03/05/2022 Referring Doctor: Dr. Villarreal PT Orders: PT CONSULT: Limited ability Precautions: Standard Patient Profile/Admitting Diagnosis: Patient is a 71-year-old female admitted early a.m. with complaint of A. fib and left chest pain as well as left lower abdominal pain. Patient has a history of CHF A. fib status post pacemaker with anticoagulant secondary to GI bleeding. Patient is steroid-dependent COPD at home on 2 L O2 N/C PMHX: All Active Problems?(Updated 03/05/22 @ 06:33 by Leticia Villarreal MD) Discharge planning issues (Acute) DVT prophylaxis (Acute) Chest pain at rest (Acute) LUQ pain (Acute) Nephrolithiasis (Chronic) Kidney stone (Chronic) Corticosteroid use (Acute) Low back pain (Acute) Anemia (Chronic) Recurrent obstructive pyelonephritis (Acute) Type II diabetes mellitus (Acute) DEVONTE (obstructive sleep apnea) (Chronic) COPD (chronic obstructive pulmonary disease) (Chronic) Chronic venous insufficiency (Acute) SSS (sick sinus syndrome) (Acute) 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 Current Functional Limitations: Patient very fatigued following no sleep last night. Patient reports independent at home. Equipment Owned/DME: Patient on N/C 2 L of O2. Subjective: I am very tired I did not get any sleep last night I called an ambulance to come into the hospital due to chest pain but now most of my pain is coming from my left kidney. Objective: General Observation: Patient asleep with oxygen on presentation into the room. Mental Status: A X0 x3, pleasant Pain: 8/10 left lower abdominal ROM: Right Upper Extremity: W FL Left Upper Extremity: WFL Right Lower Extremity: WFL Left Lower Extremity: WFL Strength: Right Upper Extremity: WFL Left Upper Extremity: WFL Right Lower Extremity: WFL Left Lower Extremity: WFL Sensation: WNL Bed Mobility/Transfers: Independent Gait: Independent x25 feet, ambulates to the commode. Patient reports she does not utilize assistive device at home and is steady on observation today. Balance: Static Sitting: WNL Dynamic Sitting: WNL Static Standing: WNL Dynamic Standing: Able to stand on 1 foot x 3 seconds bilateral. Special Tests: Mobility Limitations Standardized Measure [facility] AM-PAC 6 clicks Basic Mobility Inpatient Short Form: Raw Score: 24 CMS Score: 0% Informed Consent/Education: Patient instructed in purpose of PT consult and plan of care. Instructed patient to perform repeated sit to stands when she is getting up to maintain lower extremity strength. Once able to get some rest instructed to ambulate around room patient is safe. Assessment: Patient is a 71year old female referred to physical therapy services with the diagnosis of A. fib. Patient presents with clinical signs and symptoms consistent with MD diagnosis. Pt. is independnet within treatment room and appears safe yet fatigued from lack of sleep. At home pt. has O2 2L n/c and is independent. No need for skilled PT however pt. should perfrom sit to stand when she gets up x 5 reps as well as ambulate around room. [place] is [place] a Low [id number] Plan of Care/Treatment Plan: Patient will be discharged from skilled physical therapy. Patient is independent with mobility in and out of chairs in and out of bed and ambulating around room without assistive device. No skilled physical therapy required at this time. It is recommended that patient maintain activity while in the hospital if any functional status changes it would be recommended to have reevaluation. DISCHARGE RECOMMENDATIONS: Home with no services TREATMENT CODE/TIME: 23397 15'
[2022-03-05 12:13] LABS: Troponin I 76 ng/L (<or=60)
[2022-03-05] MEDS: HYDROcodone 10/Acetaminophen 325 TAB PO ×2 (12:16→19:24)
[2022-03-05] MEDS: Normal Saline 500 ML 30 ML IV (14:17)
[2022-03-05] MEDS: Normal Saline Flush 10 ML SYR IVP ×2 (14:17→22:06)
[2022-03-05] MEDS: Promethazine 25 MG TAB 12.5 MG PO (15:45)
[2022-03-05] MEDS: Insulin Aspart 300 UNITS/3 ML PEN SC ×2 (16:40→22:05)
[2022-03-05 17:17] LABS: Troponin I 66 ng/L (<or=60)
[2022-03-05] MEDS: Atorvastatin 40 MG TAB PO (22:05)
--- NOTE | 2022-03-05 22:41 | NUR.NOTE ---
aztreonam extravasation pharmacy consulted. use heat and ICE for patient comfort Nursing Note:
[2022-03-06] VITALS (9 sets, daily range): BP systolic 139–180; BP diastolic 71–90; PULSE 60–65; RESP 18; TEMP 35.5–36.8; O2SAT 97–98
[2022-03-06] MEDS: Normal Saline 500 ML 30 ML IV (05:38)
[2022-03-06 06:48] LABS: Abs Immature Grans 0.02 10^3/uL (0.0-0.06); Absolute Basophil Count 0.03 10^3/uL (0.0-0.2); Absolute Eosinophil Count 0.57 10^3/uL (0.0-0.7); Absolute Lymphocyte Count 2.19 10^3/uL (1.2-3.4); Absolute Monocyte Count 0.78 10^3/uL (0.1-0.8); Absolute Neutrophil Count 4.31 10^3/uL (1.2-6.7); Basophils % 0.4; Eosinophils % 7.2; HGB 10.2 g/dL (11.2-15.7); Immature Grans % 0.3; Lymphocytes % 27.7; MCH 24.5 pg (27.0-33.0); MCV 82 fL (80-95); MPV 10.4 fL (8.0-11.0); Monocytes % 9.9; Neutrophils % 54.5; Platelet Count 253 10^3/uL (130-400); RBC 4.17 10^6/uL (3.93-5.22); RDW 15.9 % (11.7-14.6)
[2022-03-06 07:08] LABS: Anion Gap 7.5 mmol/L (3-11); BUN 20 mg/dL (7-18); CO2 26.5 mmol/L (21.0-32.0); CREATININE 0.8 mg/dL (0.55-1.02); Calcium 8.9 mg/dL (8.5-10.1); Chloride 107 mmol/L (98-107); Glucose 92 mg/dL (74-106); Magnesium 1.8 mg/dL (1.8-2.4); Sodium 141 mmol/L (136-145)
[2022-03-06] MEDS: Sucralfate 1 GM TAB PO ×4 (08:06→21:33)
[2022-03-06] MEDS: hydrALAZINE 25 MG TAB PO ×3 (08:06→20:28)
[2022-03-06] MEDS: Dofetilide 250 MCG CAP PO ×2 (08:06→20:28)
[2022-03-06] MEDS: Normal Saline Flush 10 ML SYR IVP ×2 (08:06→14:09)
[2022-03-06] MEDS: predniSONE 5 MG TAB 15 MG PO (08:06)
[2022-03-06] MEDS: Sacubitril/Valsartan 24 mg/26 mg TAB 4 EACH PO ×2 (08:06→20:28)
[2022-03-06] MEDS: Carvedilol 25 MG TAB PO ×2 (08:07→20:28)
[2022-03-06] MEDS: Pantoprazole 40 MG TABCR PO ×2 (08:07→20:28)
--- NOTE | 2022-03-06 11:24 | W.UROLOGYCON ---
Assessment and Plan Assessment and plan (1) Nephrolithiasis: Status: Chronic Assessment and plan: With no hydronephrosis, I do not believe she needs an urgent ureteral stent. I believe she will need treatment for her left kidney stone once any infectious process has been addressed. With her other medical problems, she has not a surgical candidate here at our facility. We have already made a referral for her to see the providers down at [facility] and I have offered to do her follow-up care locally as long as it does not require surgery/anesthesia. History of Present Illness History of Present Illness Chief Complaint: Left kidney stone Narrative: This is a 71-year-old woman who recently moved to our area from [place]. She has a history of kidney stones. She has had ESWL treatments performed by Dr. Meghana Munroe in [place], [place]. The patient does not recall having ureteroscopy previously, but she does recall having bilateral percutaneous nephrolithotomy. She is uncertain of her stone composition, but she was told that she did not have the worst kind. Since moving to our area, the patient presented to the emergency department with intermittent left flank pain. She was found to have a 12 mm stone in the left renal pelvis. She was not showing hydronephrosis at the time of her presentation, but given her clinical presentation, we suspected intermittent obstruction from the stone. She was referred to me as an outpatient. We reviewed her chart. She has a high BMI, she is steroid-dependent for COPD and she has a cardiac history but has yet to establish with a local reflesher. We discussed the case with our anesthesia colleagues and it was felt that she would not be an anesthesia candidate for stone surgery here at [facility]. We then referred to the patient to the urology group at [facility]. She has not yet heard from [facility]. She is currently admitted with chest pain. She was having some left flank pain as well and clinically there was concern that she may have pyelonephritis. Blood and urine cultures were obtained. She was started on broad-spectrum antibiotics. Review of Systems Narrative: No fevers or chills No vision change or dysphasia Short of breath at rest. No hemoptysis Chest pain at rest. No palpitations No nausea, vomiting, hepatitis, ulcers, jaundice No seizures, strokes or peripheral neuropathy Bruises easily No gout PFSH All Active Problems (Updated 03/05/22 @ 06:33 by Leticia Villarreal MD) Discharge planning issues (Acute) DVT prophylaxis (Acute) Chest pain at rest (Acute) LUQ pain (Acute) Nephrolithiasis (Chronic) Kidney stone (Chronic) Corticosteroid use (Acute) Low back pain (Acute) Anemia (Chronic) Recurrent obstructive pyelonephritis (Acute) Type II diabetes mellitus (Acute) DEVONTE (obstructive sleep apnea) (Chronic) COPD (chronic obstructive pulmonary disease) (Chronic) Chronic venous insufficiency (Acute) SSS (sick sinus syndrome) (Acute) 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) (HFpEF) heart failure with preserved ejection fraction (Acute) HTN (hypertension) (Chronic) Medical History (Updated 03/05/22 @ 06:33 by Leticia Villarreal MD) Allergic reaction to contrast dye Atrial fibrillation Chronic respiratory failure with hypoxia Corticosteroid dependence Gastric ulcer (1986) Obesity, morbid, BMI 40.0-49.9 Oxygen dependent Pulmonary embolism (1979) Syncope (05/26/20) Thrombosis (1984) Urinary incontinence Surgical History (Updated 03/05/22 @ 06:33 by Leticia Villarreal MD) H/O bilateral salpingo-oophorectomy H/O left breast biopsy History of breast biopsy (1974) History of foot surgery (1988) Right History of hysterectomy (~1984) [place], [place] History of lithotripsy (02/2020) History of permanent cardiac pacemaker placement (05/16/21) S/P ablation of atrial fibrillation Social History Smoking/Tobacco Use Status: Former Tobacco Use Quit Date: 10/07/93 Smoking risk assessment performed?: Yes Alcohol Intake: current Alcohol Intake frequency: holidays/special occasions only Drug use: Never Substance use type: does not use Adopted: No Caregiver/Support person: No Foster care: No Household members: spouse Housing: apartment Number of Children: 2 number of grandchildren: 4 Communication Needs: None Education Level: college Details: Associate's Degree Do you need help understanding health information?: Never current occupation: Retired Pets and animals: No Sexually active: No Do you think of yourself as: straight/heterosexual Current gender identity: female What is your relationship status?: How often do you get together with friends or relatives?: three or more times per week Panel score (0-1 are the most socially isolated patients): 2 What type of physical activity do you participate in: none Elis/Pentecostalism: Restorationist Seatbelt use: always Helmet use: No Drive intox or ride w/intox cdl company driver: No Do you feel safe at home: Yes Do you feel safe in your relationship?: Yes Exam Narrative Exam Narrative: She does not appear septic or toxic Her vital signs are documented elsewhere She is morbidly obese Her abdomen is soft with no mass She is awake and alert Her blood and urine cultures are pending. Her urinalysis shows multiple cells, so a vaginal contaminant is possible. I reviewed her CT scan on the PACS system. She again has lower pole stones on the right and a larger stone in the left renal pelvis. I do not see any hydronephrosis on either side Results Last Vital Signs Temp 36.8 C 03/06/22 08:15 Pulse 61 03/06/22 10:29 Resp 18 03/06/22 08:15 BP 165/82 H 03/06/22 08:15 Pulse Ox 98 03/06/22 08:15 Labs Result diagrams: 03/06/22 06:08 03/06/22 06:08 Labs: Laboratory Results - last 24 hr 03/05/22 03/05/22 03/06/22 11:48 16:40 06:08 WBC RBC Hgb Hct MCV MCH MCHC RDW Plt Count MPV Immature Gran % Neutrophils % Lymphocytes % Monocytes % Eosinophils % Basophils % Nucleated RBC % Absolute Neutrophils Absolute Lymphocytes Absolute Monocytes Absolute Eosinophils Absolute Basophils Sodium 141 Potassium 4.0 Chloride 107 Carbon Dioxide 26.5 Anion Gap 7.5 BUN 20 H Creatinine 0.8 Estimated GFR/1.73 m2 >= 60.00 Glucose 92 Calcium 8.9 Magnesium 1.8 Troponin I 76 H* 66 H* 03/06/22 06:08 WBC 7.90 RBC 4.17 Hgb 10.2 L Hct 34.0 L MCV 82 MCH 24.5 L MCHC 30.0 L RDW 15.9 H Plt Count 253 MPV 10.4 Immature Gran % 0.3 Neutrophils % 54.5 Lymphocytes % 27.7 Monocytes % 9.9 Eosinophils % 7.2 Basophils % 0.4 Nucleated RBC % 0.0 Absolute Neutrophils 4.31 Absolute Lymphocytes 2.19 Absolute Monocytes 0.78 Absolute Eosinophils 0.57 Absolute Basophils 0.03 Sodium Potassium Chloride Carbon Dioxide Anion Gap BUN Creatinine Estimated GFR/1.73 m2 Glucose Calcium Magnesium Troponin I
[2022-03-06] MEDS: Insulin Aspart 300 UNITS/3 ML PEN SC ×2 (11:54→17:24)
--- NOTE | 2022-03-06 13:03 | PGE_ITS ---
Date of Service Date of service: 03/06/22 Time of Service: 12:03 Assessment and Plan Assessment and plan (1) Chest pain at rest: Status: Acute Assessment and plan: Likely noncardiac. No recurrence of pain since admission. The patient does have evidence of CAD on CT, but her chest pain had been going on for the entirety of the day and her troponin on presentation to the ED was negative. Given h/o chronic steroid use, there is a strong possibility of esophagitis/gastritis/GERD vs myofascial or intercostal muscle strain (no trauma). Continue scheduled PPI and carafate. Can d/c telemetry at this time. Continue to trend troponins: <50, <50, 76, 66. Obtain echo pending. (2) LUQ pain: Status: Acute Assessment and plan: This could be due to nephrolithiasis and/or pyelonephritis or GI causes (the patient has h/o GI blood loss, a listed history of an ulcer, which the patient does not actually endorse, and she is on chronic steroids) or myofascial/intercostal muscle strain. Treating for pyelonephritis with aztreonam (multiple antibioitic allergies). Dr Dominguez evaluated and sees no need for nephrolithiasis intervention at this time. UA not remarkable. Urine cx with no growth after 24 hours. Schedule PPI and carafate. (3) Atrial fibrillation: Assessment and plan: Patient is in paced rhythm on EKG here. Monitored on tele w/o any significant findings. D/C tele. Continue dofetilide. Not on anticoagulation due to reported history of GI bleeding - obtain records from [facility]. (4) Nephrolithiasis: Status: Chronic Assessment and plan: Evidence of perinephric stranding on CT - possible pyelonephritis, per my clinical interpretation, given leucocytosis. The patient is immunosuppresed with steroids and may not be able to mount a leucocyte esterase in her urine. Would treat empirically. Given allergies, on aztreonam. Blood and urine cxs negative to date. Urology consult obtained; no intervention warranted at this time. (5) Pyelonephritis: Status: Suspected Assessment and plan: As above (6) DVT prophylaxis: Status: Acute Assessment and plan: SCDs while we are investigating the details of her GI bleed in the past. 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 I will send a referral to pulmonology. Urology referral to [facility] has already been submitted, per patient. Subjective Subjective Patient reports: no new complaints and tolerating a regular diet; denies diarrhea, nausea or vomiting Interval history since last seen: No CP. Left lateral rib cage discomfort with compression. Exam Narrative Exam Narrative: Sitting in chair. Pleasant and conversant. Const General: cooperative and no acute distress Nutritional Appearance: obese Orientation: alert and oriented x3 Eyes General: appearance normal, both eyes and all related structures Sclera: sclerae normal Resp Effort & Inspection: normal respiratory effort Auscultation: clear to auscultation bilaterally Cardio Rate: regular rate Rhythm: regular rhythm Heart Sounds: S1 normal and S2 normal Back/Spine/Pelvis Back: CVA tenderness (Left lateral rib cage tenderness) Skin General skin exam: no rashes or lesions noted Neuro General: moves all extremities Cranial Nerves: facial strength normal Extrem General: no pedal edema and no calf tenderness Psych Appearance: grossly normal Mental Status: mental status grossly normal Affect: normal affect Objective Last Vital Signs Temp 36.2 C L 03/06/22 12:16 Pulse 64 03/06/22 12:16 Resp 18 03/06/22 12:16 BP 169/90 H 03/06/22 12:16 Pulse Ox 97 03/06/22 12:16 Laboratory Results - last 24 hr 03/05/22 03/06/22 03/06/22 16:40 06:08 06:08 WBC 7.90 RBC 4.17 Hgb 10.2 L Hct 34.0 L MCV 82 MCH 24.5 L MCHC 30.0 L RDW 15.9 H Plt Count 253 MPV 10.4 Immature Gran % 0.3 Neutrophils % 54.5 Lymphocytes % 27.7 Monocytes % 9.9 Eosinophils % 7.2 Basophils % 0.4 Nucleated RBC % 0.0 Absolute Neutrophils 4.31 Absolute Lymphocytes 2.19 Absolute Monocytes 0.78 Absolute Eosinophils 0.57 Absolute Basophils 0.03 Sodium 141 Potassium 4.0 Chloride 107 Carbon Dioxide 26.5 Anion Gap 7.5 BUN 20 H Creatinine 0.8 Estimated GFR/1.73 m2 >= 60.00 Glucose 92 Calcium 8.9 Magnesium 1.8 Troponin I 66 H*
--- NOTE | 2022-03-06 13:24 | DI.US_ITS ---
APPROVED REPORT EXAM: Comprehensive 2D, Doppler, and color-flow Echocardiogram Patient Location: In-Patient Room/Bed: [address]: Carla Elias RDCS (AE) Indications: A Fib, Chest pain Other Information Study Quality: Adequate Conclusion Moderate concentric left ventricular hypertrophy. Estimated ejection fraction is 55 to 60%. Wall mo tion is normal Left atrium is moderately dilated Thickened mitral leaflets with mild regurgitation Mildly dilated ascending aorta measuring 3.61 cm Wall motion Left Ventricle The left ventricle is normal size. The left ventricular systolic function is normal. The left ventric ular ejection fraction is within the normal range. Moderate concentric left ventricular hypertrophy. There is normal LV segmental wall motion. There is no ventricular septal defect visualized. LVEF is 5 6%. Right Ventricle Right ventricle is grossly normal in size. Right ventricular systolic function is grossly normal. Atria Left atrium is moderately dilated. The right atrium size is normal. The interatrial septum is intact with no evidence for an atrial septal defect. Aortic Valve Aortic valve is probably trileaflet. There is no aortic valvular stenosis. No aortic regurgitation is present. Mitral Valve Thickened mitral leaflets No evidence of mitral valve stenosis. Mild mitral regurgitation. Tricuspid Valve The tricuspid valve is normal in structure. There is no tricuspid valve stenosis. Trace tricuspid reg urgitation. Unable to assess PA pressure. Pulmonic Valve The pulmonary valve is normal in structure. There is no pulmonic valvular stenosis. There is no pulmo yadira valvular regurgitation. Great Vessels The aortic root is normal in size. The ascending aorta is mildly dilated. IVC is normal in size and c ollapses >50% with inspiration. Pericardium There is no pericardial effusion. 2D Dimensions IVSD d PLAX 1.38 cm F: 0.6-1.0 LV Vol A2C d MOD 132.1 mL LVPW d PLAX 1.31 cm F: 0.6 - 1.0 LV Vol A4C d MOD 116.4 mL LVID d PLAX 4.99 cm F: 3.8 - 5.2 LA vol/ BSA A2C s A-L 37.8 mL/m2 LVDs 3.55 cm F: 2.2 - 3.5 LA vol/ BSA A4C s A-L 42.5 mL/m2 Ao Root d 2.51 cm F: 2.7 - 3.3 LA Vol/ BSA Biplane s A-L 44.9 mL/m2 Ao Asc Diam d 3.61 cm F: 2.3 - 3.1 LA Area A4C s MOD 27.06 cm2 LV EF Teichholz 54.8 % LA Area A2C s MOD 22.81 cm2 LVEF (Dumont's) 56.65 % F: 54 - 74 LV EF A4C MOD 56.5 % LV Volume 89.60 mL F: 46 - 106 LV EF A2C MOD 56.9 % LV Volume Index 40.00 mL/m2 F: 29 - 61 LV EF Biplane MOD 56.7 % LV Vol Biplane MOD 124.0 mL SV 70.25 mL FS 28.50 % SV Index 31.27 mL/m2 M-Mode TAPSE 1.73 cm (M/F) >1.7 LV Diastology MV E' medial 0.103 (>0.07 m/s) E/A Ratio 1.6 LV E/e MED 11.95 (<14) MV E Vmax 1.23 (0.4-1.3 m/s) MV E' lateral 0.078 (>0.1 m/s) MV A Vmax 0.75 (0.4-1.3 m/s) LV E/e LAT 15.70 (<14) MV E/A Ratio 1.57 MV E/E' medial 11.99 MV E/E' lateral 15.74 Aortic Valve LVOT Area 3.30 cm2 AoV Area Vmax 2.59 cm2 LVOT Vmax 1.20 m/s AoV Area/ BSA (Vmax) 1.15 cm2/m2 LVOT Mean Reuben. 0.78 m/s LORIN Mean Reuben. 2.40 cm2 LVOT Peak Grad 5.8 mmHg LORIN Mean Reuben. Index 1.07 cm2/m2 LVOT Mean Grad 3.0 mmHg LVOT VTI 0.250 m LVOT Diam s 2.00 cm AoV Vmax 1.53 m/s Velocity Ratio 0.78 AoV Mean Reuben. 1.07 m/s AoV Peak Grad 9.3 mmHg LVOT SV 82.37 mL AoV Mean Grad 5.4 mmHg AoV VTI 0.351 m AoV Area VTI 2.34 cm2 AoV Area/ BSA (VTI) 1.04 cm/m2 Mitral Valve MV DT 244 (160-240 msec) MV PHT 71 msec MV Area PHT 3.10 cm2 MV VTI 0.367 m MV Area VTI 2.24 (4.0-6.0 cm2) Pulmonary Valve PV Vmax 1.06 (0.5-1.5 m/s) RVOT Peak Gr. 1.87 mmHg PV Peak Grad 4.5 mmHg RVOT Mean Gr. 1.00 mmHg PV Mean Grad 2.4 mmHg RVOT VTI 0.160 m PV VTI 0.195 m RVOT Vmax 0.68 m/s
[2022-03-06] MEDS: HYDROcodone 10/Acetaminophen 325 TAB PO ×2 (14:08→20:27)
--- NOTE | 2022-03-06 15:14 | INITIAL_ITS ---
- If Service Date Differs Date of service: 03/06/22 Time of Service: 15:14 Care Management Initial Assess REASON FOR HOSPITALIZATION:: chest pain PAST MEDICAL HISTORY/PAST SURGICAL HISTORY:: Medical History (Updated 03/05/22 @ 06:33 by Leticia Villarreal MD). Allergic reaction to contrast dye. Atrial fibrillation. Chronic respiratory failure with hypoxia. Corticosteroid dependence. Gastric ulcer (1986). Obesity, morbid, BMI 40.0-49.9. Oxygen dependent. Pulmonary embolism (1979). Syncope (05/26/20). Thrombosis (1984). Urinary incontinence. Surgical History (Updated 03/05/22 @ 06:33 by Leticia Villarreal MD). H/O bilateral salpingo-oophorectomy. H/O left breast biopsy. History of breast biopsy (1974). History of foot surgery (1988). Right. History of hysterectomy (~1984). [place], [place]. History of lithotripsy (02/2020). History of permanent cardiac pacemaker placement (05/16/21). S/P ablation of atrial fibrillation PREVIOUS FUNCTIONAL STATUS/SOCIAL/FAMILY SUPPORTS:: Candice lives in [place], [place] with her Aly and their son, [id number] and grandson. It is a single family home with an in-law apartment where Candice and Aly live. They also have a daughter who lives in [place]. Candice describes herself as very independent and does not require the use of any assistive devices nor does she receive any community services. CURRENT FUNCTIONAL STATUS:: Candice was sitting up in a chair when met with her. She was pleasant and agreeable to conversation. Candice informed ANDRE that she and her have recently moved to [place] from [place]. Their son bought an older home which he is renovating. It has an inlaw apartment which he invited his parents to live in. Her son Homero has a 15 month old son Ryne, which Candice describes as the love of my life. 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 ADVANCE DIRECTIVES:: Candice does not have advanced directives and does not want to complete one. Has patient been provided with info about the portal/API?: Yes Did the patient sign up for the portal?: No CODE STATUS:: Full Code INSURANCE COVERAGE / FINANCIAL ISSUES:: [employer] Medicare Advantage plan CURRENT HOME/COMMUNITY SERVICES/EQUIPMENT:: none PRIMARY CARE PHYSICIAN:: Mathew Altman POTENTIAL DISCHARGE NEEDS:: follow up with PCP and discharge plan of care PATIENT/FAMILY EDUCATION NEEDS:: Review of discharge instructions, limitations, follow up plan, discuss Ask Me Three. TRANSPORTATION:: Candice will require RCT for transport as no one in the family currently has a vehicle. PLAN:: Candice will be discharged home with no new services. She will follow up with her plan of care and transport with RCT coordinated by CM. CM will continue to support Candice and assess for ongoing discharge concerns.
--- NOTE | 2022-03-06 15:45 | CHAPLAIN ---
Candice was just finishing a conversation with ABHISHEK [place], when I visited. Candice was pleasant and easily engaged in a conversation. She is from [place] and moved to [place] in September with he . They live in an in-law apartment in their son and daughter in law's house and help take care of their grandson. Candice was hoping to go home today, but said the doctor recommended she stay another night.
[2022-03-06] MEDS: Atorvastatin 40 MG TAB PO (21:33)
[2022-03-07 00:13] VITALS: BP 170/93; PULSE 60; RESP 16; TEMP 36.2; O2SAT 97
[2022-03-07 05:36] VITALS: BP 172/81; PULSE 59; RESP 16; TEMP 35.7; O2SAT 99
[2022-03-07 07:05] VITALS: BP 183/102; PULSE 62; RESP 18; TEMP 36; O2SAT 98
[2022-03-07 07:28] VITALS: BP 176/86
[2022-03-07] MEDS: Sacubitril/Valsartan 24 mg/26 mg TAB 4 EACH PO (08:31)
[2022-03-07] MEDS: predniSONE 5 MG TAB 15 MG PO (08:31)
[2022-03-07] MEDS: Carvedilol 25 MG TAB PO (08:31)
[2022-03-07] MEDS: HYDROcodone 10/Acetaminophen 325 TAB PO (08:31)
[2022-03-07] MEDS: Sucralfate 1 GM TAB PO (08:31)
[2022-03-07] MEDS: Dofetilide 250 MCG CAP PO (08:32)
[2022-03-07] MEDS: hydrALAZINE 25 MG TAB PO (08:32)
[2022-03-07] MEDS: Pantoprazole 40 MG TABCR PO (08:33)
--- NOTE | 2022-03-07 10:31 | W.PM.DS.N ---
Date of service: 03/07/22 Time of Service: 09:32 DS: Diagnosis Discharge Diagnosis (1) Chest pain at rest: Status: Acute (2) LUQ pain: Status: Acute (3) Atrial fibrillation: (4) Nephrolithiasis: Status: Chronic (5) Pyelonephritis: Status: Suspected (6) DVT prophylaxis: Status: Acute (7) Discharge planning issues: Status: Acute (8) Intercostal muscle pain: Status: Acute Discharge Plan Disposition Patient Disposition: HOME Condition: Stable Discharge Details Reason For Visit: Chest Pain,Palpitations,Nephrolithiasis Admit Date/Time: 03/05/22 06:08 Admit Provider: Leticia Villarreal Attending Provider: Leticia Villarreal Primary Care Provider: Mathew Altman [facility] Course Hospital Course: Ms Albarado is a 71 year old female with PMHx of CHF (?EF), as well as h/o Afib/SSS, s/p pacemaker, no longer on anticoagulation due to h/o GI bleeding resulting in severe anemia in the past (treated at [facility] [place] [facility] in [place], [place]), on dofetilide therapy, O2- and Steroid-dependent COPD, on 2L of O2 by NC, DEVONTE on CPAP at night, and nephrolithiasis, who was brought to [facility] ED by EMS for complaints of L sided chest pain radiating to back, B shoulders and arms, as well as L neck, and LUQ pain. The patient stated that she was worried she was having a heart attack and could not take the pain. She also reported tothat she had a 3 hr episode of palpitations (Afib) which started at 9:30 pm while watching a movie with her grandson, which was making the chest pain worse. This resolved by the time the patient got to the ED. The patient received nitroglycerin by the EMS, which made her vomit. Otherwise, the patient does report nausea all day. Denies change in bowel habits or pain other than the LUQ pain that has been there for 1 month - she thinks it is due to a kidney stone. She has been referred to [facility] urology but had not yet been contacted by [facility] to actually schedule an appointment. The patient also thought she might be having a stroke because she had a headache today. Her ER workup revealed a leucocytosis of 12.57 (WBC count was 7.84 when seen in our ED on 02/19/22). CT chest/abdomen/pelvis showed no acute findings; she does have bilateral nonobstructing kidney stones. Bilateral perinephric stranding was noted without hydronephrosis or hydroureter. Urology evaluated; no intervention during this admission recommended. Her torponin was initially negative x2; then elevated to 76, then decreased to 66. Initial EKG showed atrial-paced complexes with abnormal anterolateral T waves. Very shortly after the first EKG she had tachycardia; borderline ST depression. She had no CP after admission. She continued to have left lateral rib cage pain with compression. No fever, cough/sputum. Aztreonam initiated. Her WBC count normalized. UA grew mixed gram positive mario. Echocardiogram showed moderate concentric left ventricular hypertropy. Est. EF of 55-60%. Moderately dilated left atrium. Mild mitral regurg. Mildly dilated ascending aorta; 3.61cm No medication changes made. She can continue prn hydrocodone or acetaminophen for the rib cage pain that is likely intercostal muscle strain. Follow up with PCP in 1-2 weeks. Home Meds and New Rx's Prescriptions: New hydrocodone-acetaminophen 10-325 mg Tablet 1 tab PO Q6H PRN PRNQty: 0 0RF Continued atorvastatin 40 mg tablet 40 mg PO QHS dofetilide [Tikosyn] 250 mcg capsule 250 mcg PO Q12H famotidine 10 mg tablet 10 mg PO DAILY (DME) blood-glucose meter [FreeStyle Flash System] Kit See Rx Instructions .Route Rx Instructions: As directed (DME) blood-glucose meter [FreeStyle Lite Meter] Kit See Rx Instructions .Route Rx Instructions: As directed (DME) FreeStyle Lite Strips Strip See Rx Instructions .Route Rx Instructions: As directed hydralazine 25 mg tablet 25 mg PO TID Rx Instructions: for 2nd dose take 2 tablets as instructed lactobacillis PO DAILY (DME) lancets [Micro Thin Lancets] 33 gauge misc See Rx Instructions .Route Rx Instructions: As directed lidocaine jelly 2 % topical metformin 1,000 mg tablet 1,000 mg PO BID phytonadione (vitamin K1) 100 mcg tablet 500 mcg PO DAILY (DME) Oxygen Tank See Rx Instructions .Route Rx Instructions: 2l/min via nasal cannula silver sulfadiazine [Silvadene] 1 % cream 1 applic topical DAILY PRN Rx Instructions: apply a 1.5 mm thickness albuterol sulfate [Ventolin HFA] 90 mcg/actuation HFA aerosol inhaler 2 puff inhalation Q6H PRN potassium chloride 10 mEq capsule, extended release 10 meq PO TID Qty: 90 3RF prednisone 5 mg tablet 15 mg PO DAILY Qty: 90 6RF Entresto 97-103 mg tablet 1 tab PO BID Qty: 180 3RF potassium chloride 20 mEq tablet extended release 20 meq PO DAILY Label Comments: pt states she takes 20meq 3x/week. carvedilol 25 mg tablet 25 mg PO BID Qty: 180 3RF Rx Instructions: must administer with a meal/food promethazine 12.5 mg tablet 12.5 mg PO Q6H PRN (Reason: nausea and vomiting) Qty: 90 3RF tamsulosin [Flomax] 0.4 mg capsule 0.4 mg PO DAILY Qty: 7 0RF Discharge Instructions Referrals: Alivia Lewis MD [ [facility] STAFF PHYSICIAN] - (COPD, chronic resp failure. ) Activity:: Activity as Tolerated Equipment/Supplies:: No Equipment Needed Diet:: Resume usual home diet Discharge Orders Discharge Orders: Discharge Order (Routine); Ordered 03/07/22 Ordered By: Phu Springer DS: Summary Time Spent with Patient providing and/or coordinating discharge services: Greater than 30 minutes Status at Discharge Functional status at discharge: independent ambulation Overall status at discharge: patient is progressing back to baseline Mental Status: mental status grossly normal Speech and Movement: speech and movement normal Mood: congruent mood Affect: normal affect Exam Narrative Exam Narrative: Sitting in chair. Pleasant and conversant. Const General: cooperative and no acute distress Nutritional Appearance: obese Orientation: alert and oriented x3 Eyes General: appearance normal, both eyes and all related structures Sclera: sclerae normal Resp Effort & Inspection: normal respiratory effort Auscultation: clear to auscultation bilaterally Cardio Rate: regular rate Rhythm: regular rhythm Heart Sounds: S1 normal and S2 normal Back/Spine/Pelvis Back: CVA tenderness (Left lateral rib cage tenderness) Skin General skin exam: no rashes or lesions noted Neuro General: moves all extremities Cranial Nerves: facial strength normal Extrem General: no pedal edema and no calf tenderness Psych Appearance: grossly normal Mental Status: mental status grossly normal Speech and Movement: speech and movement normal Mood: congruent mood Affect: normal affect DS: Data Vitals/I&O Vitals and I&O: Vital Signs Temperature 36 C L 03/07/22 07:05 Temperature Source Tympanic 03/07/22 07:05 Pulse 62 03/07/22 07:05 Pulse Rhythm Regular 03/07/22 09:11 Pulse 81 03/05/22 04:02 Respiratory Rate 18 03/07/22 07:05 Respiratory Effort Non-Labored 03/07/22 09:11 Respiratory Depth Normal 03/07/22 09:11 Respiratory Pattern Normal 03/07/22 09:11 Blood Pressure 176/86 H 03/07/22 07:28 Blood Pressure Mean 80 03/05/22 04:02 Pulse Oximetry 98 03/07/22 07:05 Oxygen Delivery Method Cpap 03/07/22 07:05 Oxygen Flow Rate 2 03/07/22 07:05 Pain Level 8 03/07/22 08:31 Comment 03/07/22 07:28 Intake & Output 03/06/22 03/06/22 03/07/22 11:59 23:59 11:59 Intake Total 596 / 1256.5 660.5 / 1256.5 340 / 340 Output Total 1000 / 1500 500 / 1500 1250 / 1250 Balance -404 / -243.5 160.5 / -243.5 -910 / -910 Weight 117.4 kg Intake: IV 156 / 376.5 220.5 / 376.5 100 / 100 Oral 440 / 880 440 / 880 240 / 240 Output: Urine 1000 / 1500 500 / 1500 1250 / 1250 Other: Urine Color Yellow Yellow Yellow Urine Appearance Clear Clear Clear Urine Odor None None None Comment 750 in the hat from night time. Voiding Methods Toilet Toilet Toilet Data Completed and Pending Labs on day of discharge: Preliminary micro results at discharge 03/05/22 07:50 Blood Culture - Preliminary Blood NO GROWTH 48 HOURS 03/05/22 07:50 Blood Culture - Preliminary Blood NO GROWTH 48 HOURS PFSH All Active Problems (Updated 03/07/22 @ 10:38 by Phu Springer MD) Intercostal muscle pain (Acute) Discharge planning issues (Acute) DVT prophylaxis (Acute) Chest pain at rest (Acute) LUQ pain (Acute) Nephrolithiasis (Chronic) Kidney stone (Chronic) Corticosteroid use (Acute) Low back pain (Acute) Anemia (Chronic) Recurrent obstructive pyelonephritis (Acute) Type II diabetes mellitus (Acute) DEVONTE (obstructive sleep apnea) (Chronic) COPD (chronic obstructive pulmonary disease) (Chronic) Chronic venous insufficiency (Acute) SSS (sick sinus syndrome) (Acute) 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) (HFpEF) heart failure with preserved ejection fraction (Acute) HTN (hypertension) (Chronic) Medical History Allergic reaction to contrast dye Atrial fibrillation Chronic respiratory failure with hypoxia Corticosteroid dependence Gastric ulcer (1986) Obesity, morbid, BMI 40.0-49.9 Oxygen dependent Pulmonary embolism (1979) Syncope (05/26/20) Thrombosis (1984) Urinary incontinence Surgical History H/O bilateral salpingo-oophorectomy H/O left breast biopsy History of breast biopsy (1974) History of foot surgery (1988) Right History of hysterectomy (~1984) [place], [place] History of lithotripsy (02/2020) History of permanent cardiac pacemaker placement (05/16/21) S/P ablation of atrial fibrillation Social History Smoking/Tobacco Use Status: Former Tobacco Use Quit Date: 10/07/93 Smoking risk assessment performed?: Yes Alcohol Intake: current Alcohol Intake frequency: holidays/special occasions only Drug use: Never Substance use type: does not use Adopted: No Caregiver/Support person: No Foster care: No Household members: spouse Housing: apartment Number of Children: 2 number of grandchildren: 4 Communication Needs: None Education Level: college Details: Associate's Degree Do you need help understanding health information?: Never current occupation: Retired Pets and animals: No Sexually active: No Do you think of yourself as: straight/heterosexual Current gender identity: female What is your relationship status?: How often do you get together with friends or relatives?: three or more times per week Panel score (0-1 are the most socially isolated patients): 2 What type of physical activity do you participate in: none Elis/Nondenominational: Gnosticist Seatbelt use: always Helmet use: No Drive intox or ride w/intox garbage collector driver: No Do you feel safe at home: Yes Do you feel safe in your relationship?: Yes
--- NOTE | 2022-03-07 12:43 | PDOC.CMDIS ---
- If Service Date Differs Date of service: 03/07/22 Time of Service: 12:43 LACE Index Scoring Tool - Questions: Length of Stay (in days): 2 Acuity (Admit via E.D.?): Yes Comorbidities: Chronic Pulmonary Disease E.D. Visits: 2 - Answers: Total Score: 9 Risk of Readmission: Low Risk Care Management Discharge Reason for Hospitalization: chest pain Discharge Plan: Candice will be discharged home with no new services. She will follow up with her plan of care and transport with a friend. Patient/Family Education Needs: Review of discharge instructions, limitations, follow up plan, discuss Ask Me Three.
== END 2022-03-07 11:54 | disposition home or self-care (01) ==
LOC: ER 07:12 → MS 07:32
PROVIDERS: Family Medicine; Admitting Provider Internal Medicine; Emergency Provider Student in an Organized Health Care Education/Training Program; PCP Family Medicine; Visit Provider Internal Medicine
DX: R07.9 Chest pain, unspecified (principal); R10.12 Left upper quadrant pain; I48.91 Unspecified atrial fibrillation; R94.31 Abnormal electrocardiogram [ECG] [EKG]; M54.9 Dorsalgia, unspecified; M54.2 Cervicalgia; R11.2 Nausea with vomiting, unspecified; N20.0 Calculus of kidney; Z79.899 Other long term (current) drug therapy; J44.9 Chronic obstructive pulmonary disease, unspecified; I87.8 Other specified disorders of veins; I49.5 Sick sinus syndrome; Z95.0 Presence of cardiac pacemaker; Z86.718 Personal history of other venous thrombosis and embolism; R10.13 Epigastric pain; I25.10 Atherosclerotic heart disease of native coronary artery without angina pectoris; Z79.52 Long term (current) use of systemic steroids; Z87.11 Personal history of peptic ulcer disease; D84.821 Immunodeficiency due to drugs; Z99.81 Dependence on supplemental oxygen; G47.33 Obstructive sleep apnea (adult) (pediatric); M54.50 Low back pain, unspecified; D64.9 Anemia, unspecified; I50.30 Unspecified diastolic (congestive) heart failure; I11.0 Hypertensive heart disease with heart failure; E83.59 Other disorders of calcium metabolism; E66.01 Morbid (severe) obesity due to excess calories; Z68.41 Body mass index [BMI] 40.0-44.9, adult; Z87.891 Personal history of nicotine dependence; Z79.84 Long term (current) use of oral hypoglycemic drugs
CPT/HCPCS: 36415; 36416; 71250; 80048; 80053; 82962; 87040; 87635; 93005; 93306; 96361; 96365; 96366; 96372; 96375; 97161; 99214; 99285; 74176; 81003; 81015; 83735; 84484; 85025; 85379; 87086; 93010; 94667; 99217; 99220; 99232; G0378; J2270; J2405; J2765; J3490; J7512

== ENCOUNTER 2022-04-30 01:38 | Outpatient (CLI) | payer MEDICARE, SELFPAY ==
--- NOTE | 2022-04-30 11:00 | DI.NM_ITS ---
APPROVED REPORT Exam: Pharmacologic Patient Location: Out-Patient Room/Bed: Stress Nurse: Teresa Ramey RN Ordering Provider:LENARD STANLEY, Contact Number: [phone] BMI: 44.79 Baseline Rhythm: Sinus Rhythm Comment: Intermittent A-paced beats Indications: Afib, new onset chest pain Medical History Medical History: Afib, HTN, HFpEF, DM II, DEVONTE w/ cpap, COPD/Asthma, Steroid dependent Cardiac Medications: Albuterol sulfate, Atorvastatin, Dofetilide, Metformin, Potassium chloride, Pred nisone, Entresto, Carvedilol Allergies: Iodine, PCN, Cephalosporins, fluticasone, Levofloxacin, Codeine, Sotalol, Inhaled anesthet ics Cardiac Risk Factors: Family history, COPD, HTN, DM II, Former smoker, HLD, Asthma, Obesity Previous Cardiac Procedures: Pacemaker (February 2020) Ablation (May 2021) Pretest Chest Pain Characteristics: None Exercise History: Sedentary Physical Disabilities: None Lung Sounds: Musical, expiratory wheezes throughout Heart Sounds: S1/S2, regular Stress Test Details Test: Pharmacologic stress was paired with low level exercise. Reason for pharmacologic stress test: physical limitation. Nuclear Acquisition: Rest Tc-99m/Stress Tc-99m 1 day Rest Isotope: Tc-99m Sestamibi. Dose: 11 Date: 04/30/2022 Injection Time: 11:05 Stress Isotope: Tc-99m Sestamibi. Dose: 35 Date: 04/30/2022 Injection Time: 1327 HR Resting HR Supine: 62 bpm Max Heart Rate (APMHR): 150.474577 bpm Resting HR Standin bpm Target HR (85% APMHR): 127.963135 bpm Max HR Achieved: 112 bpm % of APMHR: 74.67 Recovery HR: 83 bpm BP Resting BP Supine: 160/90 mmHg Resting BP Standin/90 mmHg Max BP: 202/90 mmHg Recovery BP: 170/80 mmHg BP response to stress: Abnormal hypertensive response to stress. ECG Resting ECG: Sinus Rhythm Ectopy: Observed PAC's Comment: Intermittent a-paced beats Stress ECG: Sinus Tachycardia ST Change: No significant ST segment changes noted Recovery ECG: Sinus Rhythm Recovery ST Change: No significant ST segment changes noted Recovery Arrhythmia: VPC Clinical Reason for Termination: Fatigue, Dyspnea Stress Symptoms: Dyspnea, Headache, General Fatigue Exercise duration: 3 min15 sec Exercise capacity: 1.41 METs Rate Pressure Product: 20797 Stress ECG Conclusion 1. Resting electrocardiogram was within normal limits 2. Patient underwent testing using combination of low-level exercise and regadenoson 3. Peak heart rate achieved was 74% of predicted for age. Peak workload was 1.41 METS 4. Electrocardiographic portion of the test was nondiagnostic due to inadequate heart rate 5. See MPI report Stress Test Summary STAGE HR BP SpO2 Symptoms NOTES Supine 62 160/90 SpO2 97% Standing 67 138/90 1 min post Lexiscan injection 112 202/90 Severe shortness of breath 3 min post Lexiscan injection 98 SpO2 97% 6 min post Lexiscan injection 88 178/80 SpO2 97% Headache 9 min post Lexiscan injection 83 170/80 SpO2 98% Shortness of breath resolved, headache improved Pharmacologic stress was paired with low level exercise. Pt on oxygen via [place] at 2-3L at baseline, thi s was maintained throughout test. Pt became very short of breath after Lexiscan administration and a sked to stop treadmill. Pt was reporting shortness of breath beyond baseline. Pt accompanied to the tretcher to recover. She utilized her personal rescuse inhaler at this time. Pt reported headache at this time. Recovered, shortness of breath in control and stable, headache 7/10 which pt report was an improvement. Offered patient snack, water, caffeine for headache; patient declined. Tolerated test o sarthak and was accompanied back to [place] for post stress scans MPI Conclusion Myocardial perfusion appears normal without evidence of ischemia or prior infarction EF 58%, normal wall motion Radiologist Interpretation Radiologist agrees with Power Checker's Interpretation. Radiologist Interpretation by: Vidal Beth MD Interpretation Date/Time: 04/30/2022 17:26:57
[2022-04-30] MEDS: Regadenoson 0.4 MG/5 ML SYR IVP (14:07)
== END 2022-04-30 01:58 ==
LOC: DI 01:39
PROVIDERS: PCP Family Medicine; Visit Provider Family Medicine
DX: R22.42 Localized swelling, mass and lump, left lower limb (principal); R07.9 Chest pain, unspecified
CPT/HCPCS: 78452; 93016; 93018; 99213; 93017; J2785

== ENCOUNTER 2022-05-18 07:57 | Outpatient (CLI) | payer MEDICARE, SELFPAY ==
--- NOTE | 2022-05-18 07:45 | RT.EKG_ITS ---
APPROVED REPORT Exam: Resting ECG Reason for Exam: afib Patient Location: O HR:87 bpm ECG Measurements Heart Rate 87 AXIS DE 188 P [id number] QRSd 90 QRS 7 QT 393 T 72 QTc 473 Conclusion Atrial-paced rhythm Low voltage, precordial leads...precordial leads <1.0mV
== END 2022-05-18 07:58 | disposition home or self-care (01) ==
LOC: DI.CARD 07:58
PROVIDERS: PCP Family Medicine; Visit Provider Internal Medicine Cardiovascular Disease
DX: I48.91 Unspecified atrial fibrillation (principal); I49.5 Sick sinus syndrome; I50.30 Unspecified diastolic (congestive) heart failure
CPT/HCPCS: 93010

== ENCOUNTER → 2022-05-18 11:05 | Outpatient (BNVA) | payer MEDICARE, SELFPAY | PROVIDERS: PCP Family Medicine; Referring Provider Family Medicine; Visit Provider Internal Medicine Cardiovascular Disease | DX: J45.909 Unspecified asthma, uncomplicated (principal); E11.9 Type 2 diabetes mellitus without complications; E66.01 Morbid (severe) obesity due to excess calories; G47.33 Obstructive sleep apnea (adult) (pediatric); Z99.89 Dependence on other enabling machines and devices; I48.91 Unspecified atrial fibrillation; I49.5 Sick sinus syndrome; I50.30 Unspecified diastolic (congestive) heart failure; Z95.0 Presence of cardiac pacemaker; J44.9 Chronic obstructive pulmonary disease, unspecified | CPT/HCPCS: 93005; 99203; 99215 ==

== ENCOUNTER 2022-07-11 10:28 | Outpatient (CLI) | payer MEDICARE, SELFPAY | END 2022-07-11 10:29 | disposition home or self-care (01) | LOC: DI.CARD 10:29 | PROVIDERS: PCP Family Medicine; Visit Provider Internal Medicine Cardiovascular Disease | DX: I48.91 Unspecified atrial fibrillation (principal) | CPT/HCPCS: 93010 ==

== ENCOUNTER → 2022-07-11 13:20 | Outpatient (BNVA) | payer MEDICARE, SELFPAY | PROVIDERS: PCP Family Medicine; Referring Provider Family Medicine; Visit Provider Internal Medicine Cardiovascular Disease | DX: Z95.0 Presence of cardiac pacemaker (principal); I49.5 Sick sinus syndrome; I48.91 Unspecified atrial fibrillation | CPT/HCPCS: 93280 ==

== ENCOUNTER 2022-11-20 16:13 | Outpatient (REF) | payer MEDICARE, SELFPAY | END 2022-11-20 16:14 | disposition home or self-care (01) | LOC: LBN 16:13 | PROVIDERS: PCP Family Medicine; Referring Provider Family Medicine; Visit Provider Family Medicine | DX: R32 Unspecified urinary incontinence (principal) | CPT/HCPCS: 87077; 87086; 87186 ==

== ENCOUNTER 2023-01-08 12:49 | Outpatient (REF) | payer MEDICARE, SELFPAY | END 2023-01-08 12:50 | disposition home or self-care (01) | LOC: LBN 12:49 | PROVIDERS: PCP Family Medicine; Visit Provider Family Medicine | DX: N39.0 Urinary tract infection, site not specified (principal) | CPT/HCPCS: 87077; 87086; 87186 ==

== ENCOUNTER 2024-01-07 14:17 | Outpatient (REF) | payer MEDICARE, MEDICAID, SELFPAY | END 2024-01-07 14:18 | disposition home or self-care (01) | LOC: LBN 14:17 | PROVIDERS: PCP Family Medicine; Visit Provider Family Medicine | DX: N39.0 Urinary tract infection, site not specified (principal) | CPT/HCPCS: 87086 ==

== ENCOUNTER → 2024-01-07 14:24 | Outpatient (CLI) | payer MEDICARE, MEDICAID, SELFPAY ==
--- NOTE | 2024-01-07 14:00 | DI.RAD_ITS ---
Exam(s) XR LUMBAR SPINE COMPLETE EXAM: XR LUMBAR SPINE COMPLETE CLINICAL HISTORY: M[age] low back pain,unspecified.half-way prednisone use, compression frx?. TECHNIQUE: 2D digital imaging was performed. COMPARISON: CT CT ABDOMEN PELVIS WO from 02/19/2022 FINDINGS: Five views. No evidence of fracture or listhesis. No obvious pars defects. There is chronic disc space narrowin g at L5-S1 level. Mild disc space narrowing at L1-2. Mild facet degenerative changes. No scoliosis . SI joints unremarkable. No osseous lesions. Calcification is noted in the splenic artery in left upper quadrant. There is also a calcific density measuring 10 by 8 mm in the right upper quadrant. This is shown to be a calcified lymph node on a CT scan of 02/19/2022. IMPRESSION: Degenerative disc disease DATA REPOSITORY: RADIATION DOSE DELIVERED:
== END ==
PROVIDERS: PCP Family Medicine; Visit Provider Family Medicine
DX: M54.59 Other low back pain (principal); M51.37 Other intervertebral disc degeneration, lumbosacral region; M47.817 Spondylosis without myelopathy or radiculopathy, lumbosacral region; Z79.52 Long term (current) use of systemic steroids
CPT/HCPCS: 72110